=== PATIENT | male | born 1990 | race Caucasian/White ===

== ENCOUNTER 2021-11-11 17:09 | Emergency (ER) | payer OTHER ==
[~2021-11-11] VITALS: Ht 165.1 cm; Wt 58.5 kg
[~2021-11-11 17:09] MED LIST: HUMSLIDE SUBQ; IMO2 PO; INSU100I7 SQ
--- NOTE | 2021-11-11 17:15 | NUR ---
AMBULATED TO ER BED 8
[2021-11-11 17:19] VITALS: BP 136/90
[2021-11-11] MEDS ORDERED: NACL 0.9% 2,000 ML IV ONE (17:25)
--- NOTE | 2021-11-11 17:30 | NUR ---
RT BEDSIDE FOR ABG
--- NOTE | 2021-11-11 17:40 | NUR ---
LAB BEDSIDE FOR BLOOD DRAW
--- NOTE | 2021-11-11 17:42 | NUR ---
31/M BIB SELF WITH C/O VOMITING AND ABDOMINAL PAIN SINCE THIS MORNING. STATES HE CHECKED HIS BLOOD SUGAR 20 MINS PRIOR TO ARRIVAL TO ED AND IT WAS IN THE 500S. PATIENTS BLOOD SUGAR 569 UPON ARRIVAL. DENIES DIZZINESS OR VISION CHANGES, PATIENT STATES HE WAS ADMITTED HERE FOR HIGH SUGAR IN THE PAST AND SENT HOME ON RX OF HUMALOG, PATIENT STATES HE HAS BEEN COMPLIANT WITH HOME MEDICATIONS.
[2021-11-11 17:54] LABS: BASOPHILS % (AUTO) 0.6 % (0.0-2.0); EOSINOPHILS # (AUTO) 0.1 K/uL (0-0.4); EOSINOPHILS % (AUTO) 1.6 % (0.0-4.0); HEMATOCRIT 39.1 % (36-52); HEMOGLOBIN 12.7 g/dL (12.0-18.0); LYMPHOCYTES # (AUTO) 1.3 K/uL (2.0-11.5); LYMPHOCYTES % (AUTO) 23.1 % (20.5-51.1); MEAN CORPUSCULAR HEMOGLOBIN 24 pg (27-31); MEAN CORPUSCULAR HGB CONC 32 g/dL (33-37); MEAN CORPUSCULAR VOLUME 74.4 fL (80-94); MONOCYTES # (AUTO) 0.2 K/uL (0.8-1.0); MONOCYTES % (AUTO) 3.5 % (1.7-9.3); NEUTROPHILS # (AUTO) 4.1 K/uL (1.8-7.7); NEUTROPHILS % (AUTO) 71.2 % (42.2-75.2); PLATELET COUNT (AUTO) 270 K/uL (140-450); RED BLOOD CELL COUNT(AUTO) 5.25 MIL/uL (4.20-6.10); RED CELL DISTRIBUTION WIDTH 16.7 % (11.6-13.7); WHITE BLOOD COUNT (AUTO) 5.7 K/uL (4.8-10.8)
--- NOTE | 2021-11-11 18:00 | NUR ---
31/M BIB SELF WITH C/O VOMITING AND ABD PAIN 8/10 SINCE THIS MORNING. 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 PATIENTS BLOOD SUGAR 569 UPON ARRIVAL. DENIES DIZZINESS OR VISION CHANGES. ALLERGIES: PENICILLIN, REGLAN PMH: DM, ASTHMA
--- NOTE | 2021-11-11 18:00 | NUR ---
ARDON AT BEDSIDE.
--- NOTE | 2021-11-11 18:12 | NUR ---
X-RAY AT BEDSIDE.
[2021-11-11 18:23] LABS: ALBUMIN 3.7 g/dL (3.4-5.0); ANION GAP 12.2 (8-16); CARBON DIOXIDE 27.5 mmol/L (21-32); CREATININE 1.7 mg/dL (0.6-1.3); POTASSIUM 4.7 mmol/L (3.5-5.1); TOTAL BILIRUBIN 0.6 mg/dL (0.0-1.0)
[2021-11-11] MEDS ORDERED: KETOROLAC 30 MG/ML VIAL IVP ONE ×2 (18:50→19:50)
[2021-11-11] MEDS ORDERED: ONDANSETRON 4 MG/2 ML VIAL IVP ONE (18:50)
--- NOTE | 2021-11-11 19:18 | NUR ---
GAVE REPORT TO MARIA WU.
--- NOTE | 2021-11-11 20:01 | NUR ---
PT SLEEPING IN A LATERAL POSITION. BED LOWERED TO LOWEST POSITION
--- NOTE | 2021-11-11 21:00 | NUR ---
BLOOD SUGAR COMING DOWN. PT STATES STOMACH PAIN HAS NOT RESOLVED. DR EWING TO SEE PT
[2021-11-11] MEDS ORDERED: MORPHINE SULFATE 4 MG/ML SYR IVP ONE (21:10)
[2021-11-11] MEDS ORDERED: BEN10 PO (21:12)
--- NOTE | 2021-11-11 21:45 | NUR ---
Patient appears to be resting comfortably in bed. Vital Signs within normal limits. Respirations even and unlabored.
--- NOTE | 2021-11-11 22:30 | NUR ---
PROVIDED PT WATER. PT STATES PAIN 08/02. ALL NEEDS MET AT THIS TIME
[2021-11-11 22:45] VITALS: BP 121/80
--- NOTE | 2021-11-11 22:45 | NUR ---
Patient discharged with v/s stable. Written and verbal after care instructions given and explained. Patient alert, oriented and verbalized understanding of instructions. Ambulatory with steady gait. All questions addressed prior to discharge. ID band removed. Patient advised to follow up with PMD. Rx of BENTYL given. Opportunity to ask questions provided and answered.
--- NOTE | 2021-11-11 23:19 | NUR ---
The patient's care was reviewed and supervised by Analilia Curran RN.
== END 2021-11-11 22:45 | disposition home or self-care (01) ==
LOC: MED 17:09
DX: E11.65 Type 2 diabetes mellitus with hyperglycemia (principal); R11.2 Nausea with vomiting, unspecified; J45.909 Unspecified asthma, uncomplicated; Z79.899 Other long term (current) drug therapy; Z79.4 Long term (current) use of insulin; Z88.0 Allergy status to penicillin; Z88.1 Allergy status to other antibiotic agents
CPT/HCPCS: 36415; 36600; 71045; 80053; 82803; 82948; 83605; 83690; 85025; 87040; 96361; 96374; 96375; 99284; J1885; J2270; J2405; J7030

== ENCOUNTER 2021-12-03 18:30 | Emergency (ER) | payer OTHER ==
[~2021-12-03] VITALS: Ht 165.1 cm; Wt 58.5 kg
[~2021-12-03 18:30] MED LIST changes: +BEN10 PO
[2021-12-03 18:54] VITALS: BP 89/50
--- NOTE | 2021-12-03 19:30 | NUR ---
Patient ambulated to bed 1 and change to a gown.
[2021-12-03] MEDS ORDERED: NACL 0.9% 1,000 ML IV ONE (20:10)
[2021-12-03] MEDS ORDERED: ONDANSETRON 4 MG/2 ML VIAL IVP ONE (21:10)
[2021-12-03] MEDS ORDERED: MORPHINE SULFATE 4 MG/ML SYR IVP ONE (21:10)
[2021-12-03 21:24] LABS: ACETONE, SERUM NEGATIVE (NEGATIVE)
[2021-12-03 21:31] LABS: BASOPHILS % (AUTO) 0.7 % (0.0-2.0); EOSINOPHILS # (AUTO) 0.2 K/uL (0-0.4); EOSINOPHILS % (AUTO) 2.9 % (0.0-4.0); HEMOGLOBIN 12.2 g/dL (12.0-18.0); LYMPHOCYTES # (AUTO) 2.2 K/uL (2.0-11.5); MEAN CORPUSCULAR HEMOGLOBIN 24 pg (27-31); MEAN CORPUSCULAR HGB CONC 32 g/dL (33-37); MEAN CORPUSCULAR VOLUME 75.3 fL (80-94); MONOCYTES # (AUTO) 0.3 K/uL (0.8-1.0); MONOCYTES % (AUTO) 4.6 % (1.7-9.3); NEUTROPHILS # (AUTO) 4.4 K/uL (1.8-7.7); NEUTROPHILS % (AUTO) 60.8 % (42.2-75.2); PLATELET COUNT (AUTO) 319 K/uL (140-450); RED BLOOD CELL COUNT(AUTO) 5.05 MIL/uL (4.20-6.10); RED CELL DISTRIBUTION WIDTH 17.2 % (11.6-13.7); WHITE BLOOD COUNT (AUTO) 7.2 K/uL (4.8-10.8)
[2021-12-03 21:34] LABS: ALBUMIN 2.2 g/dL (3.4-5.0); ANION GAP 13.4 (8-16); ASPARTATE AMINOTRANSFERASE 15 U/L (15-37); CARBON DIOXIDE 17.8 mmol/L (21-32); CHLORIDE 117 mmol/L (98-107); CREATININE 1.4 mg/dL (0.6-1.3); GFR ARICAN-AMERICAN 75 mL/min (>90); GLUCOSE 57 mg/dL (74-106); SODIUM SERUM 146 mmol/L (136-145); TOTAL BILIRUBIN 0.2 mg/dL (0.0-1.0); UREA NITROGEN, BLOOD 24 mg/dL (7-18)
[2021-12-03 21:37] LABS: POTASSIUM 2.2 mmol/L (3.5-5.1)
--- NOTE | 2021-12-03 21:52 | NUR ---
PT BIB SELF WITH COMPLAINT OF FEELING WEAK AND ABDOMINAL PAIN SHE RATES 10/10. STATES HIS BS AT HOME WAS ELEVATED IN THE 500. PT STATES HE HAS DM TYPE 1 AND STATES HIS CURRENT MEDICATION DOES NOT HELP WITH HIS BS LEVELS. DENIES ANY OTHER MEDICAL PROBLEMS.
--- NOTE | 2021-12-03 22:32 | NUR ---
PT CURRENTLY IN BED IN NO ACUTE DISTRESS, STATES HE FEELS BETTER AND IS IN VERY LITTLE ABDOMINAL PAIN AFTER PAIN MEDICATION, RATES 5/10.
[2021-12-03 22:42] LABS: BASOPHILS % (AUTO) 0.7 % (0.0-2.0); EOSINOPHILS # (AUTO) 0.2 K/uL (0-0.4); EOSINOPHILS % (AUTO) 3.1 % (0.0-4.0); HEMATOCRIT 38.4 % (36-52); HEMOGLOBIN 12.5 g/dL (12.0-18.0); LYMPHOCYTES # (AUTO) 2.5 K/uL (2.0-11.5); LYMPHOCYTES % (AUTO) 34.6 % (20.5-51.1); MEAN CORPUSCULAR HEMOGLOBIN 24 pg (27-31); MEAN CORPUSCULAR HGB CONC 33 g/dL (33-37); MEAN CORPUSCULAR VOLUME 74.1 fL (80-94); MONOCYTES # (AUTO) 0.3 K/uL (0.8-1.0); MONOCYTES % (AUTO) 4.5 % (1.7-9.3); NEUTROPHILS # (AUTO) 4.1 K/uL (1.8-7.7); NEUTROPHILS % (AUTO) 57.1 % (42.2-75.2); PLATELET COUNT (AUTO) 290 K/uL (140-450); RED BLOOD CELL COUNT(AUTO) 5.18 MIL/uL (4.20-6.10); RED CELL DISTRIBUTION WIDTH 17.7 % (11.6-13.7); WHITE BLOOD COUNT (AUTO) 7.2 K/uL (4.8-10.8)
[2021-12-03 23:07] LABS: ALBUMIN 3.4 g/dL (3.4-5.0); ANION GAP 14.1 (8-16); CARBON DIOXIDE 22.6 mmol/L (21-32); CREATININE 1.8 mg/dL (0.6-1.3); POTASSIUM 3.7 mmol/L (3.5-5.1); TOTAL BILIRUBIN 0.2 mg/dL (0.0-1.0)
[2021-12-03] MEDS ORDERED: ONDA-188 SL (23:30)
[2021-12-03] MEDS ORDERED: BEN10 PO (23:30)
[2021-12-04 00:40] VITALS: BP 89/50
--- NOTE | 2021-12-04 00:40 | NUR ---
Patient discharged with v/s stable. Written and verbal after care instructions given and explained. Patient alert, oriented and verbalized understanding of instructions. Ambulatory with steady gait. All questions addressed prior to discharge. ID band removed. Patient advised to follow up with PMD. Rx of DICICLOMINE AND ONDANSETRON given. Patient educated on indication of medication including possible reaction and side effects. Opportunity to ask questions provided and answered.
== END 2021-12-04 00:40 | disposition home or self-care (01) ==
LOC: MED 18:30
DX: R11.2 Nausea with vomiting, unspecified (principal); E11.65 Type 2 diabetes mellitus with hyperglycemia; J45.909 Unspecified asthma, uncomplicated; Z79.899 Other long term (current) drug therapy; Z79.4 Long term (current) use of insulin; Z88.0 Allergy status to penicillin; Z88.8 Allergy status to other drugs, medicaments and biological substances; Z91.011 Allergy to milk products
CPT/HCPCS: 36415; 80053; 82009; 82803; 85025; 96361; 96374; 96375; 99284; J2270; J2405; J7030

== ENCOUNTER 2022-01-24 03:45 | Emergency (ER) | payer OTHER ==
[~2022-01-24] VITALS: Ht 172.7 cm; Wt 74.8 kg
[~2022-01-24 03:45] MED LIST changes: +ACET-9525 PO; +NITR100C7 PO; +ONDA-188 SL; +PANT40EC PO
[2022-01-24 03:47] VITALS: BP 150/104
--- NOTE | 2022-01-24 03:53 | NUR ---
PT BROUGHT TO BED 8 VIA MANNY EDWARDS
--- NOTE | 2022-01-24 04:25 | NUR ---
31 Y/O M BIBA FOR SEIZURE THAT LASTED 30 SECONDS WITNESSED BY ROOMATE R/T LOW BLOOD SUGAR. PT DENIES HITTING HEAD. PT WAS INCONTINENT . AT THE SCENE BS WAS 20 , EMS GAVE GLUCAGON AT ARRIVAL BS WAS 191. DENIES N/V/D; SKIN IS PINK/WARM/DRY; AAOX4 WITH EVEN AND STEADY GAIT; LUNGS CLEAR BL; HR EVEN AND REGULAR; PT DENIES ANY FEVER, CP, SOB, OR COUGH AT THIS TIME; PATIENT STATES PAIN OF 0/10 AT THIS TIME; PMH: DIABETES RX: INSULIN
[2022-01-24 05:27] LABS: ALBUMIN 3.3 g/dL (3.4-5.0); ANION GAP 11.1 (8-16); CARBON DIOXIDE 25.3 mmol/L (21-32); CREATININE 1.5 mg/dL (0.6-1.3); POTASSIUM 4.4 mmol/L (3.5-5.1); TOTAL BILIRUBIN 0.2 mg/dL (0.0-1.0)
[2022-01-24 05:28] LABS: HEMOGLOBIN 11.1 g/dL (12.0-18.0)
[2022-01-24 05:36] LABS: HEMATOCRIT 34.7 % (36-52); MEAN CORPUSCULAR HEMOGLOBIN 25 pg (27-31); MEAN CORPUSCULAR HGB CONC 32 g/dL (33-37); MEAN CORPUSCULAR VOLUME 77.2 fL (80-94); PLATELET COUNT (AUTO) 335 K/uL (140-450); RED CELL DISTRIBUTION WIDTH 16.5 % (11.6-13.7); WHITE BLOOD COUNT (AUTO) 20.7 K/uL (4.8-10.8)
[2022-01-24 05:40] LABS: EOSINOPHILS % (MANUAL) 1 % (0-4); LYMPHOCYTES % (MANUAL) 5 % (20-46); MONOCYTES % (MANUAL) 6 % (5-12)
--- NOTE | 2022-01-24 05:55 | NUR ---
Patient appears to be resting comfortably in bed. Vital Signs within normal limits. Respirations even and unlabored.
[2022-01-24 06:40] VITALS: BP 106/68
--- NOTE | 2022-01-24 06:40 | NUR ---
Patient discharged with v/s stable. Written and verbal after care instructions given and explained. Patient verbalized understanding. Ambulatory with steady gait. All questions addressed prior to discharge. Advised to follow up with PMD.
== END 2022-01-24 06:40 | disposition home or self-care (01) ==
LOC: MED 03:45
DX: E10.649 Type 1 diabetes mellitus with hypoglycemia without coma (principal); R41.82 Altered mental status, unspecified; J45.909 Unspecified asthma, uncomplicated; Z88.0 Allergy status to penicillin; Z79.84 Long term (current) use of oral hypoglycemic drugs; Z79.4 Long term (current) use of insulin; Z91.011 Allergy to milk products
CPT/HCPCS: 36415; 80053; 85025; 99285

== ENCOUNTER 2022-02-09 16:53 | Emergency (ER) | payer OTHER ==
[~2022-02-09] VITALS: Ht 165.1 cm; Wt 57.6 kg
[2022-02-09 17:46] VITALS: BP 109/73
[2022-02-09] MEDS ORDERED: NACL 0.9% 1,000 ML IV ONE ×2 (18:55→19:40)
[2022-02-09 19:14] LABS: WHITE BLOOD COUNT (AUTO) 4.5 K/uL (4.8-10.8)
[2022-02-09 19:15] LABS: EOSINOPHILS % (AUTO) 6.4 % (0.0-4.0); HEMATOCRIT 40.8 % (36-52); HEMOGLOBIN 13.1 g/dL (12.0-18.0); LYMPHOCYTES % (AUTO) 22.1 % (20.5-51.1); MEAN CORPUSCULAR HEMOGLOBIN 25 pg (27-31); MEAN CORPUSCULAR HGB CONC 32 g/dL (33-37); MEAN CORPUSCULAR VOLUME 76.7 fL (80-94); MONOCYTES % (AUTO) 9.2 % (1.7-9.3); PLATELET COUNT (AUTO) 272 K/uL (140-450); RED BLOOD CELL COUNT(AUTO) 5.32 MIL/uL (4.20-6.10)
[2022-02-09 19:16] LABS: BASOPHILS # (AUTO) 0.1 K/uL (0.00-0.22); BASOPHILS % (AUTO) 1.3 % (0.0-2.0); EOSINOPHILS # (AUTO) 0.3 K/uL (0-0.4); MONOCYTES # (AUTO) 0.4 K/uL (0.8-1.0); NEUTROPHILS # (AUTO) 2.8 K/uL (1.8-7.7)
[2022-02-09 19:36] LABS: ANION GAP 19.8 (8-16); CARBON DIOXIDE 21.1 mmol/L (21-32); CHLORIDE 89 mmol/L (98-107); POTASSIUM 5.9 mmol/L (3.5-5.1); SODIUM SERUM 124 mmol/L (136-145)
[2022-02-09 19:38] LABS: CREATININE 1.7 mg/dL (0.6-1.3); GFR ARICAN-AMERICAN 60 mL/min (>90); GLUCOSE 682 mg/dL (74-106); TOTAL BILIRUBIN 0.7 mg/dL (0.0-1.0); UREA NITROGEN, BLOOD 28 mg/dL (7-18)
[2022-02-09 19:39] LABS: ALBUMIN 4.2 g/dL (3.4-5.0); ASPARTATE AMINOTRANSFERASE 31 U/L (15-37)
[2022-02-09] MEDS ORDERED: INSULIN REGULAR, HUMAN 100 UNIT/ML VIAL IV ONE (19:40)
[2022-02-09] MEDS ORDERED: DICYCLOMINE HCL LIQUID 20 MG, ALUMINUM HYD/MAG/SIMETHICONE 30 ML, LIDOCAINE VISCOUS 2% ... PO ONE ×3 (20:45)
[2022-02-09] MEDS ORDERED: INSULIN REGULAR, HUMAN 100 UNIT/ML VIAL SUBQ ONE (20:45)
[2022-02-09] MEDS ORDERED: ONDANSETRON 4 MG/2 ML VIAL IVP ONE (20:45)
[2022-02-09] MEDS ORDERED: ONDANSETRON 4 MG/2 ML VIAL ONE (21:02)
[2022-02-09] MEDS ORDERED: DICYCLOMINE HCL LIQUID 10 MG/5 ML UDC ONE (21:02)
[2022-02-09] MEDS ORDERED: ALUMINUM HYD/MAG/SIMETHICONE 30 ML UDC ONE (21:02)
[2022-02-09 21:17] VITALS: BP 112/79
[2022-02-09] MEDS ORDERED: KETOROLAC 15 MG/ML VIAL IVP ONE (21:20)
[2022-02-09] MEDS ORDERED: KETOROLAC 15 MG/ML VIAL ONE (21:26)
[2022-02-09] MEDS ORDERED: FAMO-90 PO (21:59)
[2022-02-09] MEDS ORDERED: ONDA-188 PO (21:59)
[2022-02-10] MEDS ORDERED: ALBU0.0912 INH (16:31)
== END 2022-02-09 22:48 | disposition home or self-care (01) ==
LOC: MED 16:53
DX: U07.1 COVID-19 (principal); E10.65 Type 1 diabetes mellitus with hyperglycemia; E87.5 Hyperkalemia; J45.909 Unspecified asthma, uncomplicated; F17.210 Nicotine dependence, cigarettes, uncomplicated; Z88.0 Allergy status to penicillin; Z79.84 Long term (current) use of oral hypoglycemic drugs; Z91.011 Allergy to milk products; Z79.4 Long term (current) use of insulin; Z79.899 Other long term (current) drug therapy
CPT/HCPCS: 36415; 71045; 80053; 82803; 84132; 84484; 85025; 87426; 96361; 96372; 96374; 96375; 99291; J1815; J1885; J2405; J7030; Q0092

== ENCOUNTER 2022-02-10 13:34 | Inpatient (IN) | payer OTHER ==
[~2022-02-10] VITALS: Ht 165.1 cm; Wt 60.0 kg
[~2022-02-10 13:34] MED LIST changes: +FAMO-90 PO; +ONDA-188 PO
[2022-02-10 13:39] VITALS: BP 139/95
--- NOTE | 2022-02-10 13:44 | NUR ---
Patient ambulated with steady gait to bed 1.
[2022-02-10] MEDS ORDERED: NACL 0.9% 1,000 ML IV ONE (14:30)
[2022-02-10] MEDS ORDERED: ONDANSETRON 4 MG/2 ML VIAL IVP ONE (14:30)
[2022-02-10 15:23] LABS: BASOPHILS # (AUTO) 0.1 K/uL (0.00-0.22); BASOPHILS % (AUTO) 0.7 % (0.0-2.0); EOSINOPHILS # (AUTO) 0.2 K/uL (0-0.4); EOSINOPHILS % (AUTO) 2.7 % (0.0-4.0); HEMATOCRIT 34.2 % (36-52); HEMOGLOBIN 11.2 g/dL (12.0-18.0); LYMPHOCYTES # (AUTO) 1.1 K/uL (2.0-11.5); LYMPHOCYTES % (AUTO) 14.4 % (20.5-51.1); MEAN CORPUSCULAR HEMOGLOBIN 25 pg (27-31); MEAN CORPUSCULAR HGB CONC 33 g/dL (33-37); MEAN CORPUSCULAR VOLUME 75.6 fL (80-94); MONOCYTES # (AUTO) 0.3 K/uL (0.8-1.0); MONOCYTES % (AUTO) 4.6 % (1.7-9.3); NEUTROPHILS # (AUTO) 5.8 K/uL (1.8-7.7); NEUTROPHILS % (AUTO) 77.6 % (42.2-75.2); PLATELET COUNT (AUTO) 254 K/uL (140-450); RED BLOOD CELL COUNT(AUTO) 4.52 MIL/uL (4.20-6.10); RED CELL DISTRIBUTION WIDTH 15.9 % (11.6-13.7); WHITE BLOOD COUNT (AUTO) 7.4 K/uL (4.8-10.8)
[2022-02-10] MEDS ORDERED: MORPHINE SULFATE 4 MG/ML SYR IVP ONE (15:30)
[2022-02-10 15:33] LABS: ACETONE, SERUM SMALL (NEGATIVE)
--- NOTE | 2022-02-10 15:35 | NUR ---
PT C/O OF VOMITING X 1DAY, COVID+. PT COMPLAIN OF SOME CHEST DISCOMFORT AND SOB. 10/10 PAIN IN BLQ. PT WOULD NOT LET ME PALPATE AREA DUE TO PAIN. IN TRIAGE PTS BS 448. DENIES DIAHRREA, FEVER OR CHILLS. A&OX4, SKIN INTACT, VITALS WNL FOR PT, AND STEADY GAIT. PT PLACED ON BEDSIDE MONITOR. ALLERGIES: PENICILLIN, REGLAN PMH: DM, ASTHMA
[2022-02-10 15:39] LABS: ALBUMIN 3.6 g/dL (3.4-5.0); ANION GAP 24.4 (8-16); ASPARTATE AMINOTRANSFERASE 22 U/L (15-37); CARBON DIOXIDE 18.1 mmol/L (21-32); CHLORIDE 98 mmol/L (98-107); CREATININE 1.4 mg/dL (0.6-1.3); GFR ARICAN-AMERICAN 75 mL/min (>90); LIPASE 43 U/L (73-393); POTASSIUM 4.5 mmol/L (3.5-5.1); SODIUM SERUM 136 mmol/L (136-145); TOTAL BILIRUBIN 0.5 mg/dL (0.0-1.0); UREA NITROGEN, BLOOD 25 mg/dL (7-18)
[2022-02-10 15:41] LABS: GLUCOSE 411 mg/dL (74-106)
--- NOTE | 2022-02-10 15:58 | NUR ---
QUINTON GIVEN TO SHIP WASHER
[2022-02-10] MEDS ORDERED: ALBU0.0912 INH (16:31)
[2022-02-10] MEDS ORDERED: ONDANSETRON 4 MG/2 ML VIAL IVP PRN (16:45)
[2022-02-10] MEDS ORDERED: DEXTROSE 50% 50 ML SYR IVP PRN (16:45)
[2022-02-10] MEDS ORDERED: ACETAMINOPHEN 325 MG TAB PO PRN (16:45)
[2022-02-10] MEDS ORDERED: INSULIN LANTUS 100 UNITS/ML 10 ML VIAL SUBQ SCH (17:00)
[2022-02-10 17:01] LABS: APPEARANCE,URINE CLEAR (CLEAR); BILIRUBIN,URINE NEGATIVE (NEGATIVE); BLOOD, URINE TRACE-I (NEGATIVE); COLOR,URINE YELLOW (YELLOW); LEUKOCYTE ESTERASE ,URINE NEGATIVE (NEGATIVE); NITRITE, URINE NEGATIVE (NEGATIVE); UGLUCOSE 3+ (NEGATIVE)
--- NOTE | 2022-02-10 17:15 | NUR ---
PT VOMITED. GAVE DUE MEDS. NOTIFIED PT THAT HE HAD TYLENOL IF HE WOULD LIKE THAT WHILE I CALLED THE DOCTOR. ALL PTS NEEDS MEET AT THIS TIME.
[2022-02-10 17:18] LABS: OTHER CASTS, URINE None Seen /LPF (None Seen); RBC,URINE 0-5 /HPF (0-5); WBC,URINE 0-5 /HPF (0-5)
[2022-02-10] MEDS: NACL 0.9% 1,000 ML IV SCH (17:19)
[2022-02-10 18:00] LABS: ANION GAP 21.2 (8-16); CARBON DIOXIDE 19.2 mmol/L (21-32); CREATININE 1.3 mg/dL (0.6-1.3); POTASSIUM 4.4 mmol/L (3.5-5.1)
--- NOTE | 2022-02-10 18:25 | NUR ---
PT ARRIVED TO UNIT VIA GURNEY. PT IS AWAKE AND ALERT. A&OX4. ON RA WITH BREATHING UNLABORED. AMBULATORY INDEPENDENTLY. SKIN IS WARM, DRY, AND INTACT. NO DISTRESS NOTED AT THIS TIME. PT IS STABLE. PLAN OF CARE DISCUSSED.
[2022-02-10 18:30] VITALS: BP 126/94
--- NOTE | 2022-02-10 18:30 | NUR ---
Patient will be admitted to care of DR. BA. Admited to MED SURG. Will go to [facility] 118. Belongings list completed. Report to COLLETTE STEINBERG.
--- NOTE | 2022-02-10 19:12 | NUR ---
ENDORSE TO FEED PREPARATION OPERATOR FOR CONTINUE NEW ADMIT ASSESSMENT.
--- NOTE | 2022-02-10 19:38 | NUR ---
ENDORSED PT TO DIAMOND FINISHING SUPERVISOR NURSE FOR CONTINUITY OF CARE. PT IS STABLE. PLAN OF CARE DISCUSSED.
--- NOTE | 2022-02-10 19:40 | NUR ---
RECEIVED REPORT FROM DAY SHIFT RN FOR CONTINUITY OF CARE. PT IS ON DROPLET PRECAUTIONS. PT IS AAOX4 ON RA. PT COMPLAINING OF PAIN AND ONLY HAS TYLENOL ORDER. WILL MESSAGE PERMASTONE INSTALLER DOCTOR. PT HAS RIGHT AC 22 GAUGE WITH NS 125 ML/HR. PLAN OF CARE DISCUSSED. CALL LIGHT WITHIN REACH. WILL CONTINUE TO OBSERVE THE PT.
[2022-02-10 20:00] VITALS: BP 138/94
[2022-02-10] MEDS: HYDROcodone/APAP 5/325 MG 1 TAB TAB PO PRN (20:44)
--- NOTE | 2022-02-10 20:50 | NUR ---
ALL DUE MEDS GIVEN. NORCO GIVEN PER MD ORDER FOR ABD PAIN. NO OTHER COMPLAINS FROM THE PT. WILL CONTINUE TO OBSERVE.
[2022-02-10] MEDS ORDERED: FAMOTIDINE 20 MG/2 ML VIAL IVP SCH (21:00)
[2022-02-10] MEDS: INSULIN LISPRO SLIDING SCALE 100 UNITS/ML VIAL SUBQ PRN (21:07)
[2022-02-10] MEDS: BLOOD GLUCOSE MONITORING 1 DEV DEV FS SCH (21:08)
[2022-02-10] MEDS: INSULIN LANTUS 100 UNITS/ML 10 ML VIAL SUBQ SCH (21:08)
--- NOTE | 2022-02-10 21:48 | NUR ---
PT IV GOT INFILTRATED. IV WAS REMOVED AND CATHETER INTACT. PT IS HARD STICK AND HAD TO HAVE US GUIDED IV INSERTION. I WAS UNABLE TO FIND ANY VEINS TO ATTEMPT INSERTION. MESSAGED TREE CHIPPER DOCTOR DIANDRA IF HE WANTS TO ORDER A MIDLINE FOR PT. WAITING FOR REPLY.
--- NOTE | 2022-02-11 00:30 | NUR ---
PT IS SLEEPING COMFORTABLY IN BED. PT IS NOT IN ANY DISTRESS. PT STILL HAS NO IV ACCESS. DR. JIM ORDER FOR A MIDLINE EARLIER. WILL CONTINUE TO OBSERVE THE PT.
[2022-02-11] MEDS: NACL 0.9% 1,000 ML IV SCH ×4 (00:45→20:53)
[2022-02-11 01:03] LABS: ANION GAP 17.5 (8-16); CARBON DIOXIDE 23.7 mmol/L (21-32); CREATININE 1.1 mg/dL (0.6-1.3); POTASSIUM 4.2 mmol/L (3.5-5.1)
--- NOTE | 2022-02-11 02:17 | NUR ---
PT IS AWAKE. PT STATES HE IS DOING WELL. PT HAS NO COMPLAINS RIGHT NOW. WILL CONTINUE TO MONITOR THE PT.
[2022-02-11 04:00] VITALS: BP 129/78
--- NOTE | 2022-02-11 05:05 | NUR ---
PT IS SLEEPING IN BED COMFORTABLY. PT IS NOT IN ANY ACUTE DISTRESS. CALL LIGHT WITHIN REACH. ALL SAFETY MEASURES TAKEN. WILL CONTINUE TO MONITOR THE PT.
[2022-02-11] MEDS: BLOOD GLUCOSE MONITORING 1 DEV DEV FS SCH ×4 (06:42→20:49)
[2022-02-11 07:12] LABS: BASOPHILS % (AUTO) 0.6 % (0.0-2.0); EOSINOPHILS # (AUTO) 0.4 K/uL (0-0.4); EOSINOPHILS % (AUTO) 4.3 % (0.0-4.0); HEMOGLOBIN 11.9 g/dL (12.0-18.0); LYMPHOCYTES # (AUTO) 1.9 K/uL (2.0-11.5); LYMPHOCYTES % (AUTO) 21.8 % (20.5-51.1); MEAN CORPUSCULAR HEMOGLOBIN 25 pg (27-31); MEAN CORPUSCULAR HGB CONC 32 g/dL (33-37); MEAN CORPUSCULAR VOLUME 76.2 fL (80-94); MONOCYTES # (AUTO) 0.7 K/uL (0.8-1.0); MONOCYTES % (AUTO) 8.1 % (1.7-9.3); NEUTROPHILS # (AUTO) 5.6 K/uL (1.8-7.7); NEUTROPHILS % (AUTO) 65.2 % (42.2-75.2); PLATELET COUNT (AUTO) 270 K/uL (140-450); RED BLOOD CELL COUNT(AUTO) 4.85 MIL/uL (4.20-6.10); RED CELL DISTRIBUTION WIDTH 16.3 % (11.6-13.7); WHITE BLOOD COUNT (AUTO) 8.6 K/uL (4.8-10.8)
[2022-02-11 07:22] LABS: ALBUMIN 3.5 g/dL (3.4-5.0); ANION GAP 17.9 (8-16); CARBON DIOXIDE 23.5 mmol/L (21-32); CREATININE 1.1 mg/dL (0.6-1.3); MAGNESIUM 2.1 mg/dL (1.8-2.4); POTASSIUM 3.4 mmol/L (3.5-5.1); TOTAL BILIRUBIN 0.3 mg/dL (0.0-1.0)
--- NOTE | 2022-02-11 07:30 | NUR ---
RECEIVED REPORT FROM PHOTOVOLTAIC INSTALLATION TECHNICIAN NURSE FOR CONTINUITY OF CARE. PT IS AWAKE IN BED. RESPIRATIONS EVEN AND UNLABORED ON RA. A&O4, ABLE TO COMMUNICATE NEEDS. NO IV SITE AT THIS TIME, PER PHOTOVOLTAIC INSTALLATION TECHNICIAN NURSE PICC LINE WAS ORDERED, CONSENT WAS PRINTED BUT NOT YET SIGNED BY PT OR MD. THEREFORE, NO IV FLUIDS AT THIS TIME. PHOTOVOLTAIC INSTALLATION TECHNICIAN NURSE ENDORSED PT HAVING A BS AT 50'S THIS MORNING. HE GAVE PT ORANGE JUICE AND NOW AT 65. UNAWARE IF MD WAS INFORMED BUT NO COVERAGE WAS ORDERED AT THIS TIME. SKIN IS INTACT, WARM AND DRY TO TOUCH. CALL LIGHT WITHIN REACH. SAFETY PRECAUTIONS IN PLACE. WILL CONTINUE TO MONITOR.
--- NOTE | 2022-02-11 07:34 | NUR ---
RECEIVED CRITICAL LAB VALUE FOR GLUCOSE 20. ORANGE JUICE GIVEN. CHECKED FINGERSTICK BS 115. MADE AWARE GLUCAGON ORDERED AND ADMINISTERED.
--- NOTE | 2022-02-11 07:34 | NUR ---
ENDORSE PT TO DAY SHIFT RN FOR CONTINUITY OF CARE. PT IS STABLE.
--- NOTE | 2022-02-11 07:54 | NUR ---
POINT OF CARE DISCUSSED AND REVIEWED WITH JAZMIN SANTANA.
[2022-02-11] MEDS ORDERED: GLUCAGON 1 MG VIAL IM SCH (07:59)
[2022-02-11 08:00] VITALS: BP 140/107
[2022-02-11] MEDS: ENOXAPARIN 40 MG/0.4 ML SYR SUBQ SCH (08:08)
[2022-02-11] MEDS: HYDROcodone/APAP 5/325 MG 1 TAB TAB PO PRN ×2 (08:09→20:30)
--- NOTE | 2022-02-11 08:09 | NUR ---
ADMINISTERED SCHEDULED MORNING MED. PT COMPLAIN OF ABD AND CHEST PAIN WITH NO SOB 12/31, MADE AWARE AND PRN NORCO GIVEN ORDERED. K 3.4, KDUR ORDERED BY . ORDERED TO CHANGE PEPCID TO PO MED. AWAITING FOR PT PICC LINE TO BE INSERTED.
[2022-02-11] MEDS ORDERED: POTASSIUM CHLORIDE 10 MEQ TABER PO SCH (08:24)
--- NOTE | 2022-02-11 08:33 | NUR ---
PATIENT HAS BEEN SCREENED AND CATEGORIZED HIGH NUTRITION RISK. PATIENT WILL BE SEEN WITHIN 1-2 DAYS OF ADMISSION. / ALEX HYDE RD
--- NOTE | 2022-02-11 09:15 | NUR ---
DISCUSSED WITH PT ABOUT PICC LINE INSERTION. PT VERBALIZED UNDERSTANDING. GOT PT CONSENT FOR PICC LINE. GOT TELEPHONE CONSENT FROM DR BA FOR INSERTION OF PICC LINE.
[2022-02-11] MEDS: FAMOTIDINE 20 MG TAB PO SCH ×2 (10:44→20:41)
--- NOTE | 2022-02-11 11:49 | NUR ---
SPOKE TO PICC LINE NURSE. PER PICC LINE NURSE, PICC LINE GOOD TO USE.
--- NOTE | 2022-02-11 12:00 | NUR ---
BLOOD GLUCOSE CHECK DONE. BS 140. NO INSULIN COVERAGE NEEDED. PT HOOKED TO NS 125 ML/HR. PT COMPLAINED OF ABD AND CHEST PAIN 05/02. PT REQUESTING FOR STRONGER PAIN MEDS. PAGED . AWAITING FOR RESPONSE.
[2022-02-11 12:11] LABS: CARBON DIOXIDE 25.1 mmol/L (21-32); CREATININE 1.2 mg/dL (0.6-1.3); POTASSIUM 4.1 mmol/L (3.5-5.1)
--- NOTE | 2022-02-11 14:04 | NUR ---
DID ROUNDS: PT SLEEPING AT THIS TIME. NO DISTRESS NOTED. BREATHING EVEN AND UNLABORED. CALL LIGHT WITHIN REACH. SAFETY PRECAUTIONS IN PLACE.
--- NOTE | 2022-02-11 14:25 | NUR ---
DC PLANNIN YRS OLD MALE PATIENT WAS ADMITTED FROM HOME WITH A DX OF UNCONTROLLED DM, NAUSEA/VOMITING. PATIENT HAS A HX OF DM ON INSULIN. RAPID COVID TEST POSITIVE. CXR SHOWED NO ACUTE DISEASE. ON ROOM AIR SATING 99% ADMINISTERED IVF, IV ZOFRAN AND IV MORPHINE. CONSULTED WITH ID . DC PLAN TO GO HOME WHEN STABLE. CM TO FOLLOW
[2022-02-11] MEDS: MORPHINE SULFATE 4 MG/ML SYR IVP PRN ×2 (14:45→20:40)
--- NOTE | 2022-02-11 14:51 | NUR ---
PAIN MEDICATION GIVEN FOR PAIN ON RIGHT SIDE BODY9/10.
[2022-02-11 16:00] VITALS: BP 121/83
--- NOTE | 2022-02-11 16:56 | NUR ---
BLOOD GLUCOSE CHECK DONE. BS 108. NO INSULIN COVERAGE GIVEN.
--- NOTE | 2022-02-11 19:20 | NUR ---
ENDORSED PT TO MACHINE FITTER NURSE FOR CONTINUITY OF CARE. ALL NEEDS MET THROUGHOUT SHIFT. PT IS STABLE.
[2022-02-11 20:00] VITALS: BP 113/66
--- NOTE | 2022-02-11 20:00 | NUR ---
PAIN PT REPORT PAIN 01/30. PT GIVEN NORCO
--- NOTE | 2022-02-11 20:00 | NUR ---
OPENING NOTE PT IS COVID (=) AND IS ON DROPLET PRECAUTIONS. PT IS AAOX4 ON RA SKIN INTACT. PT COMPLAINING OF PAIN AND RATES PAIN 10/10. PT HAS RIGHT AC 22 GAUGE WITH NS 125 ML/HR. EXPLAINED TO PT HOW TO TAKE IV POLE WITH HIM TO THE RESTROOM. CALL LIGHT WITHIN REACH. ALL SAFETY MEASURES ARE IN PLACE WILL CONTINUE TO OBSERVE THE PT.
--- NOTE | 2022-02-11 20:00 | NUR ---
OPENING NOTE PT IS COVID (+) AND IS ON DROPLET PRECAUTIONS. PT IS AAOX4 ON RA SKIN INTACT. PT COMPLAINING OF PAIN AND RATES PAIN 10/10. PT HAS RIGHT AC 22 GAUGE WITH NS 125 ML/HR. EXPLAINED TO PT HOW TO TAKE IV POLE WITH HIM TO THE RESTROOM. CALL LIGHT WITHIN REACH. ALL SAFETY MEASURES ARE IN PLACE WILL CONTINUE TO OBSERVE THE PT.
--- NOTE | 2022-02-11 20:30 | NUR ---
PAIN PT C/O OF PAIN NA ABD AND RATES 10/. P T GIVEN MORPHINE
--- NOTE | 2022-02-11 20:30 | NUR ---
PAIN MEDICATION PT REPORTED PAIN WAS NOT EFFECTIVE PAIN IS NOW AT 10
[2022-02-11] MEDS: INSULIN LISPRO SLIDING SCALE 100 UNITS/ML VIAL SUBQ PRN (20:53)
[2022-02-11] MEDS: INSULIN LANTUS 100 UNITS/ML 10 ML VIAL SUBQ SCH (20:53)
[2022-02-12] VITALS: BP 123/82
[2022-02-12] MEDS: MORPHINE SULFATE 4 MG/ML SYR IVP PRN ×2 (02:29→09:02)
--- NOTE | 2022-02-12 02:30 | NUR ---
PAIN PT REPORTS PAIN LEVEL IN ABD A 10/10. PT GIVEN MS IVP
[2022-02-12 04:00] VITALS: BP 119/87
--- NOTE | 2022-02-12 05:30 | NUR ---
BLOOD SUGAR PT REQUESTED APPLE JUICEWIT 1 PACKET OF SUGAR
--- NOTE | 2022-02-12 05:30 | NUR ---
BLOOD SUGAR PT REPORTED NT FELING WELL AND BLOOD SUGAR WAS 68
--- NOTE | 2022-02-12 06:00 | NUR ---
BLOOD SUGAR RETAKEN BLOOD SUGAR WAS 101
[2022-02-12] MEDS: BLOOD GLUCOSE MONITORING 1 DEV DEV FS SCH ×3 (06:30→07:06)
[2022-02-12 07:05] LABS: BASOPHILS % (AUTO) 0.6 % (0.0-2.0); EOSINOPHILS # (AUTO) 0.3 K/uL (0-0.4); EOSINOPHILS % (AUTO) 4.8 % (0.0-4.0); HEMATOCRIT 30.4 % (36-52); LYMPHOCYTES # (AUTO) 1.8 K/uL (2.0-11.5); LYMPHOCYTES % (AUTO) 30.1 % (20.5-51.1); MEAN CORPUSCULAR HEMOGLOBIN 25 pg (27-31); MEAN CORPUSCULAR HGB CONC 33 g/dL (33-37); MEAN CORPUSCULAR VOLUME 75.3 fL (80-94); MONOCYTES # (AUTO) 0.4 K/uL (0.8-1.0); MONOCYTES % (AUTO) 7.1 % (1.7-9.3); NEUTROPHILS # (AUTO) 3.5 K/uL (1.8-7.7); NEUTROPHILS % (AUTO) 57.4 % (42.2-75.2); PLATELET COUNT (AUTO) 200 K/uL (140-450); RED BLOOD CELL COUNT(AUTO) 4.03 MIL/uL (4.20-6.10); RED CELL DISTRIBUTION WIDTH 15.8 % (11.6-13.7); WHITE BLOOD COUNT (AUTO) 6.1 K/uL (4.8-10.8)
[2022-02-12 07:16] LABS: ALBUMIN 2.7 g/dL (3.4-5.0); ANION GAP 11.3 (8-16); CARBON DIOXIDE 26.2 mmol/L (21-32); CREATININE 0.7 mg/dL (0.6-1.3); MAGNESIUM 1.8 mg/dL (1.8-2.4); POTASSIUM 3.5 mmol/L (3.5-5.1); TOTAL BILIRUBIN 0.2 mg/dL (0.0-1.0)
[2022-02-12 08:00] VITALS: BP 124/86
--- NOTE | 2022-02-12 08:02 | NUR ---
RECEIVED REPORT FROM PRIMARY CARE PROVIDER NURSE FOR CONTINUITY OF CARE, POC DISCUSSED. PT IS STABLE IN BED. ALL SAFETY MEASURES IN PLACE, CALL LIGHT WITHIN REACH. WILL CONTINUE TO MONITOR.
[2022-02-12] MEDS: FAMOTIDINE 20 MG TAB PO SCH (08:57)
[2022-02-12] MEDS: ENOXAPARIN 40 MG/0.4 ML SYR SUBQ SCH (08:58)
--- NOTE | 2022-02-12 09:00 | NUR ---
[place] MEDICATION ADMINISTERED PER MD ORDER, PT TOLERATED ADMINISTRATION. PRN PAIN MEDICATION ADMINISTERED PER MD ORDER. PT TOLERATED ADMINISTRATION. ALL SAFETY MEASURES IN PLACE, CALL LIGHT WITHIN REACH. WILL CONTINUE TO MONITOR.
[2022-02-12] MEDS: NACL 0.9% 1,000 ML IV SCH (09:02)
--- NOTE | 2022-02-12 10:48 | NUR ---
(02/12/22) RD INITIAL ASSESSMENT COMPLETED PLEASE REFER TO NUTRITION ASSESSMENT UNDER CARE ACTIVITY FOR ESTIMATED NUTRITIONAL NEEDS. RD RECOMMENDATIONS: 1. CONTINUE ON CCHO 60 GM DIET TOLERATED. 2. CONSULT RDN PRN. 3. RD WILL F/U 3-5 DAYS; MODERATE RISK. JEANIE GOODSON MS, RDN
--- NOTE | 2022-02-12 12:00 | NUR ---
BLOOD GLUCOSE OF 256, 6 UNITS OF INSULIN ADMINISTERED PER MD ORDER, PT TOLERATED ADMINISTRATION.
[2022-02-12] MEDS: INSULIN LISPRO SLIDING SCALE 100 UNITS/ML VIAL SUBQ PRN (12:20)
[2022-02-12] MEDS: HYDROcodone/APAP 5/325 MG 1 TAB TAB PO PRN (12:48)
--- NOTE | 2022-02-12 13:00 | NUR ---
PRN PAIN MEDICATION ADMINISTERED PER MD ORDER, PT TOLERATED ADMINISTRATION.
--- NOTE | 2022-02-12 15:12 | NUR ---
DC INSTRUCTIONS PROVIDED TO PT, PT VERBALIZED UNDERSTANDING. ALL QUESTIONS HAVE BEEN ANSWERED. DC PAPERWORK SIGNED AND HANDED TO PT. PICC LINE REMOVED, CATH IN PLACE. PT TOLERATED REMOVAL. PT IS STABLE.
[2022-02-12] MEDS ORDERED: BLOOD GLUCOSE MONITORING 1 DEV DEV FS SCH (16:30)
== END 2022-02-12 15:20 | disposition home or self-care (01) | DRG 137 ==
LOC: MED 13:34 → MTU 16:57
PROVIDERS: ADMIT Internal Medicine; ATTEND Internal Medicine
PROC: 02HV33Z Insertion of Infusion Device into Superior Vena Cava, Percutaneous Approach (ICD-10-PCS; principal; 2022-02-11)
PROC: B548ZZA Ultrasonography of Superior Vena Cava, Guidance (ICD-10-PCS; 2022-02-11)
DX: U07.1 COVID-19 (principal); N17.0 Acute kidney failure with tubular necrosis; E86.0 Dehydration; E10.65 Type 1 diabetes mellitus with hyperglycemia; J45.909 Unspecified asthma, uncomplicated; Z88.0 Allergy status to penicillin; Z88.8 Allergy status to other drugs, medicaments and biological substances; Z79.899 Other long term (current) drug therapy; Z79.4 Long term (current) use of insulin
CPT/HCPCS: 36415; 36556; 36600; 71045; 80048; 80053; 81001; 82009; 82803; 82948; 83690; 83735; 85025; 85379; 86140; 87081; 96361; 96372; 96374; 96375; 99285; J1610; J1650; J1815; J2270; J2405; J3490; J7030; Q0092

== ENCOUNTER 2022-02-24 08:05 | Inpatient (IN) | payer OTHER ==
[~2022-02-24] VITALS: Ht 165.1 cm; Wt 56.7 kg
--- NOTE | 2022-02-24 06:07 | NUR ---
Reported critical phaneuf hospital lab to Dr. Carver. New order received. Addendum: 02/24/22 at 1716 by Radha Donald RN Correct time 2061
[~2022-02-24 08:05] MED LIST changes: -ACET-9525 PO; +ALBU0.0912 INH; -BEN10 PO; -IMO2 PO; -NITR100C7 PO; -ONDA-188 SL
[2022-02-24 08:10] VITALS: BP 104/76
--- NOTE | 2022-02-24 08:16 | NUR ---
PT AMB TO BED 2.
[2022-02-24] MEDS ORDERED: HALOPERIDOL IM 5 MG/ML VIAL IM ONE (08:20)
[2022-02-24] MEDS ORDERED: MORPHINE SULFATE 4 MG/ML SYR IM ONE (08:20)
--- NOTE | 2022-02-24 08:43 | NUR ---
31 Y.O. M C/O GENERALIZED ABDOMINAL PAIN, N/V/D X 3 DAYS. BLOOD SUGAR: HI AT THIS TIME. PT SAID TOOK LAST DOSE OF INSULIN LAST NIGHT. 300CC OF EMISIS IN BAG WHEN AMBULATED TO BED. DENIES SOB AND CHEST PAIN. A&OX4, SKIN INTACT, VITALS WNL AND STEADY GAIT. PT PLACED IN GOWN AND SWAPPED EMISIS BAG FOR NEW ONE. ALLERGY:PENICILLIN, LACTOSE, METOCLOPRAMIDE PMH: ASTHMA, DM
[2022-02-24 09:21] LABS: ALBUMIN 4.1 g/dL (3.4-5.0); ASPARTATE AMINOTRANSFERASE 11 U/L (15-37); CARBON DIOXIDE 22.4 mmol/L (21-32); CHLORIDE 87 mmol/L (98-107); GFR ARICAN-AMERICAN 17 mL/min (>90); LIPASE 56 U/L (73-393); POTASSIUM 4.4 mmol/L (3.5-5.1); SODIUM SERUM 134 mmol/L (136-145); TOTAL BILIRUBIN 0.7 mg/dL (0.0-1.0)
[2022-02-24 09:48] LABS: GLUCOSE 716 mg/dL (74-106); UREA NITROGEN, BLOOD 69 mg/dL (7-18)
[2022-02-24] MEDS ORDERED: NACL 0.9% 2,000 ML IV ONE (10:20)
[2022-02-24] MEDS ORDERED: INSULIN REGULAR, HUMAN 100 UNIT/ML VIAL IVP ONE (10:20)
[2022-02-24 10:23] LABS: ACETONE, SERUM TRACE (NEGATIVE)
--- NOTE | 2022-02-24 10:40 | NUR ---
PT ATTEMPTED TO AMBULATED TO RESTROOM. EN ROUTE TO RESTROOM, PT STARTED FALLING BACK AND WAS ASSISTED TO THE GROUND BY PRIMARY NURSE. PT WAS THEN ASSISTED BACK INTO BED BY 2 NURSES. PT REPORTED THAT HE "TRIPPED". PT DENIED FEELING DIZZY. PT DID NOT HIT HIS HEAD. PT DENIES ANY PAIN S/P FALL, NO INJURIES NOTED, SKIN INTACT. DR EWING MADE AWARE.
--- NOTE | 2022-02-24 10:41 | NUR ---
UNABLE TO OBTAIN IV ACCESS. DR EWING MADE AWARE. ULTRASOUND SET UP AT BEDSIDE
[2022-02-24 10:52] LABS: BASOPHILS # (AUTO) 0.1 K/uL (0.00-0.22); BASOPHILS % (AUTO) 0.3 % (0.0-2.0); EOSINOPHILS % (AUTO) 0.1 % (0.0-4.0); HEMATOCRIT 42.8 % (36-52); HEMOGLOBIN 13.5 g/dL (12.0-18.0); LYMPHOCYTES # (AUTO) 1.4 K/uL (2.0-11.5); LYMPHOCYTES % (AUTO) 6.5 % (20.5-51.1); MEAN CORPUSCULAR HEMOGLOBIN 24 pg (27-31); MEAN CORPUSCULAR HGB CONC 32 g/dL (33-37); MEAN CORPUSCULAR VOLUME 76.2 fL (80-94); MONOCYTES # (AUTO) 0.7 K/uL (0.8-1.0); MONOCYTES % (AUTO) 3.3 % (1.7-9.3); NEUTROPHILS # (AUTO) 19.9 K/uL (1.8-7.7); NEUTROPHILS % (AUTO) 89.8 % (42.2-75.2); PLATELET COUNT (AUTO) 503 K/uL (140-450); RED BLOOD CELL COUNT(AUTO) 5.61 MIL/uL (4.20-6.10); RED CELL DISTRIBUTION WIDTH 15.8 % (11.6-13.7)
[2022-02-24 11:01] LABS: WHITE BLOOD COUNT (AUTO) 22.1 K/uL (4.8-10.8)
[2022-02-24] MEDS ORDERED: MAGNESIUM OXIDE 400 MG TAB PO PRN (11:35)
[2022-02-24] MEDS ORDERED: MORPHINE SULFATE 4 MG/ML SYR IVP PRN (11:35)
[2022-02-24] MEDS ORDERED: POTASSIUM CHLORIDE 10 MEQ TABER PO PRN (11:35)
[2022-02-24] MEDS ORDERED: ACETAMINOPHEN 325 MG TAB PO PRN (11:35)
[2022-02-24] MEDS ORDERED: MAG SULF 2000 MG/WATER PREMIX 50 ML IV PRN (11:35)
[2022-02-24] MEDS ORDERED: KCL 20 MEQ/WATER INJ PREMIX 200 ML IV PRN (11:35)
[2022-02-24] MEDS ORDERED: NACL 0.9% 1,000 ML IV SCH (11:35)
--- NOTE | 2022-02-24 11:38 | NUR ---
QUINTON COLLECTED AND WALKED TO LAB
--- NOTE | 2022-02-24 12:09 | NUR ---
Patient will be admitted to care of DR. JIM. Admited to ICU. Will go to room 8. Belongings list completed. Report to COLLETTE CABAN.
--- NOTE | 2022-02-24 12:20 | NUR ---
Received pt alert and oriented x3. O2 sat 98% on room air. Sinus rhythm on monitor. NPO per DKA protocol. Continent bowel and bladder. Peripheral IV 22 gauge on left upper arm intact and patent. Safety precautions in place.
--- NOTE | 2022-02-24 12:38 | NUR ---
Note lisbeth in EDM - 02/24/22 at 1241 by JOSELYN Patient will be admitted to care of DR. JIM. Admited to ICU. Will go to room 8. Belongings list completed. Report to COLLETTE CABAN.
[2022-02-24] MEDS ORDERED: INSULIN LISPRO SLIDING SCALE 100 UNITS/ML VIAL SUBQ PRN (12:50)
[2022-02-24] MEDS: DEXT 5% / NACL 0.45% 1,000 ML IV SCH ×3 (12:50→22:50)
[2022-02-24] MEDS ORDERED: DEXTROSE 50% 50 ML SYR IVP PRN (12:50)
[2022-02-24] MEDS: BLOOD GLUCOSE MONITORING 1 DEV DEV FS SCH ×11 (12:53→23:56)
--- NOTE | 2022-02-24 12:55 | NUR ---
PATIENT HAS BEEN SCREENED AND CATEGORIZED HIGH NUTRITION RISK. PATIENT WILL BE SEEN WITHIN 1-2 DAYS OF ADMISSION. ALEX HYDE RD
[2022-02-24] MEDS ORDERED: INSULIN REGULAR, HUMAN 100 UNIT in NACL 0.9% 100 ML IV SCH ×4 (13:00)
--- NOTE | 2022-02-24 13:10 | NUR ---
Seen and examined by Dr. Hernández.
[2022-02-24] MEDS: NACL 0.9% 1,000 ML IV SCH ×3 (13:27→23:05)
[2022-02-24] MEDS: MORPHINE SULFATE 2 MG/ML SYR IVP PRN ×2 (13:31→21:16)
[2022-02-24 14:00] VITALS: BP 113/68
[2022-02-24 16:00] VITALS: BP 108/60
[2022-02-24 16:23] LABS: ANION GAP 22.1 (8-16); CARBON DIOXIDE 24.2 mmol/L (21-32); POTASSIUM 4.3 mmol/L (3.5-5.1)
[2022-02-24 16:31] LABS: MAGNESIUM 2.6 mg/dL (1.8-2.4)
[2022-02-24 16:32] LABS: PHOSPHORUS 9.9 mg/dL (2.5-4.9)
[2022-02-24 16:46] LABS: CREATININE 4.6 mg/dL (0.6-1.3)
[2022-02-24] MEDS: SEVELAMER CARBONATE 800 MG TAB PO SCH (16:49)
--- NOTE | 2022-02-24 17:57 | NUR ---
Seen and examined by Dr. Crockett.
[2022-02-24 18:00] VITALS: BP 114/62
--- NOTE | 2022-02-24 19:23 | NUR ---
Endorsed to awake overnight monitor nurse Tabby for continuity of care.
--- NOTE | 2022-02-24 19:37 | NUR ---
"RECEIVED ENDORSEMENT FOR PATIENT CARE FROM DAY SHIFT (COLLETTE CABAN). PATIENT IS CURRENTLY ASLEEP. EASY TO AROUSE; ALERT AND ORIENTED x4. CURRENTLY ON INSULIN DRIP (0.1 UNITS/KG/HR | 5.7ML/HR). INFORMED PATIENT THAT A URINE SAMPLE WILL BE NEEDED. CALL LIGHT PLACED WITHIN REACH. WILL CONTINUE TO MONITOR GLUCOSE LEVELS"
[2022-02-24 20:00] VITALS: BP 129/75
--- NOTE | 2022-02-24 20:00 | NUR ---
AUTOMOTIVE REFINISHER AT BEDSIDE TO DRAW BLOOD
[2022-02-24 20:28] LABS: ANION GAP 20.1 (8-16); POTASSIUM 4.1 mmol/L (3.5-5.1)
[2022-02-24 20:29] LABS: MAGNESIUM 2.7 mg/dL (1.8-2.4); PHOSPHORUS 8.4 mg/dL (2.5-4.9)
[2022-02-24 20:30] LABS: CREATININE 4.2 mg/dL (0.6-1.3)
--- NOTE | 2022-02-24 20:30 | NUR ---
RECEIVED PHONE CALL FROM TIANA IN THE LAB. CRITICAL LABS: BUN = 78 CR = 4.2 GLUCOSE = [address] SHIELDS TO INFORM HIM OF CRITICAL LABS. NO NEW ORDERS GIVEN, PATIENT TO CONTINUE CURRENT DKA PROTOCOL.
--- NOTE | 2022-02-24 21:16 | NUR ---
PATIENT WITH COMPLAINTS OF ABDOMINAL PAIN; ADMINISTERED MORPHINE PER MD ORDERS. WILL CONTINUE TO MONITOR PATIENT
[2022-02-24 22:00] VITALS: BP 126/76
--- NOTE | 2022-02-24 23:45 | NUR ---
PATIENT REPORTS VOMITING; EMESIS BAG CONTAINED APPROXIMATELY 15ML'S OF LIQUID. ADMINISTERED ONDANSETRON PER MD ORDERS. WILL CONTINUE TO MONITOR PATIENT Addendum: 02/25/22 at 0031 by Tabby Jamison RN [id number]
[2022-02-24] MEDS: ONDANSETRON 4 MG/2 ML VIAL IVP PRN (23:51)
[2022-02-25] VITALS (9 sets, daily range): BP systolic 119–187; BP diastolic 57–119
--- NOTE | 2022-02-25 00:08 | NUR ---
HEALTH CARE SANITARY TECHNICIAN AT BEDSIDE TO OBTAIN BLOOD SAMPLE.
[2022-02-25 00:29] LABS: ANION GAP 14.8 (8-16); CARBON DIOXIDE 30.9 mmol/L (21-32); CREATININE 3.6 mg/dL (0.6-1.3); POTASSIUM 3.7 mmol/L (3.5-5.1)
[2022-02-25 00:33] LABS: MAGNESIUM 2.6 mg/dL (1.8-2.4); PHOSPHORUS 6.6 mg/dL (2.5-4.9)
--- NOTE | 2022-02-25 00:33 | NUR ---
RECEIVED CALL FROM WISAM IN THE LAB. CRITICAL LAB RESULTS: GLUCOSE = 412 PATIENT ADMITTED FOR DKA, HAS HOURLY GLUCOSE CHECKS, AND IS ON INSULIN DRIP. WILL CONTINUE TO MONITOR PATIENT
[2022-02-25] MEDS: BLOOD GLUCOSE MONITORING 1 DEV DEV FS SCH ×11 (01:08→20:55)
[2022-02-25] MEDS: MORPHINE SULFATE 2 MG/ML SYR IVP PRN ×4 (01:57→20:50)
--- NOTE | 2022-02-25 02:11 | NUR ---
PATIENT WITH COMPLAINTS OF ABDOMINAL PAIN ADMINISTERED MORPHINE PER MD ORDERS WILL CONTINUE TO MONITOR PATIENT
--- NOTE | 2022-02-25 02:59 | NUR ---
PATIENT WITH BLOOD SUGAR = 117 INSULIN DRIP TITRATED FROM 0.1 UNITS/KG/HR TO 0.05 UNITS/KG/HR. IVF CHANGED FROM NS TO D5 07/25 NS WILL CONTINUE TO MONITOR THIS PATIENT Addendum: 02/25/22 at 0407 by Tabby Jamison RN 114
[2022-02-25] MEDS: NACL 0.9% 1,000 ML IV SCH ×2 (03:50→11:00)
[2022-02-25] MEDS: DEXT 5% / NACL 0.45% 1,000 ML IV SCH (04:03)
--- NOTE | 2022-02-25 04:15 | NUR ---
PATIENT NOTED WITH BLOOD SUGAR OF 48; PHONE CALL PLACED TO DR. SHIELDS. LABS REVIEWED (BUN, CR, ANION GAP). INSULIN DRIP HAS BEEN PAUSED WILL CONTINUE WITH IVF = D5 1/2 NS WILL CONTINUE TO MONITOR PATIENT
[2022-02-25 04:25] LABS: BASOPHILS # (AUTO) 0.2 K/uL (0.00-0.22); BASOPHILS % (AUTO) 1.1 % (0.0-2.0); EOSINOPHILS # (AUTO) 0.1 K/uL (0-0.4); EOSINOPHILS % (AUTO) 0.4 % (0.0-4.0); HEMATOCRIT 41.7 % (36-52); HEMOGLOBIN 13.6 g/dL (12.0-18.0); LYMPHOCYTES # (AUTO) 2.8 K/uL (2.0-11.5); LYMPHOCYTES % (AUTO) 15.3 % (20.5-51.1); MEAN CORPUSCULAR HEMOGLOBIN 25 pg (27-31); MEAN CORPUSCULAR HGB CONC 33 g/dL (33-37); MEAN CORPUSCULAR VOLUME 75.5 fL (80-94); MONOCYTES # (AUTO) 0.8 K/uL (0.8-1.0); MONOCYTES % (AUTO) 4.5 % (1.7-9.3); NEUTROPHILS # (AUTO) 14.5 K/uL (1.8-7.7); NEUTROPHILS % (AUTO) 78.7 % (42.2-75.2); PLATELET COUNT (AUTO) 449 K/uL (140-450); RED BLOOD CELL COUNT(AUTO) 5.52 MIL/uL (4.20-6.10); RED CELL DISTRIBUTION WIDTH 15.6 % (11.6-13.7); WHITE BLOOD COUNT (AUTO) 18.4 K/uL (4.8-10.8)
[2022-02-25 04:37] LABS: ALBUMIN 4.1 g/dL (3.4-5.0); ANION GAP 17.1 (8-16); CARBON DIOXIDE 31.5 mmol/L (21-32); CREATININE 3.3 mg/dL (0.6-1.3); POTASSIUM 3.6 mmol/L (3.5-5.1); TOTAL BILIRUBIN 0.3 mg/dL (0.0-1.0)
[2022-02-25] MEDS: HYDROcodone/APAP 5/325 MG 1 TAB TAB PO PRN ×3 (05:47→23:20)
--- NOTE | 2022-02-25 07:10 | NUR ---
CARE OF PATIENT ENDORSED TO DAY SHIFT (COLLETTE TAVAREZ)
--- NOTE | 2022-02-25 07:20 | NUR ---
RECEIVED REPORT FROM MICHAEL MURDOCK FOR CONTINUITY OF CARE. PT ALERT, PERRLA. ROOM AIR, LUNGS CLEAR. SR ON MONITOR. 22G IV TO LFA. NPO. BOWEL SOUNDS ACTIVE. MILD WEAKNESS TO EXTREMITIES. STANDARD PRECAUTION, CALL LIGHT WITHIN REACH, BED IN LOWEST POSITION.
[2022-02-25] MEDS: SEVELAMER CARBONATE 800 MG TAB PO SCH ×3 (08:14→16:38)
--- NOTE | 2022-02-25 08:15 | NUR ---
SEEN AND EXAMINED BY DR. JIM. ORDERS RECEIVED.
[2022-02-25] MEDS: ONDANSETRON 4 MG/2 ML VIAL IVP PRN ×2 (08:40→14:41)
--- NOTE | 2022-02-25 08:45 | NUR ---
PT VOMITED 250ML. MEDICATED WITH PRN ZOFRAN 4MG IVP.
[2022-02-25] MEDS: INSULIN LANTUS 100 UNITS/ML 10 ML VIAL SUBQ SCH (09:15)
--- NOTE | 2022-02-25 09:30 | NUR ---
PT REPORTS DECREASED NAUSEA. RESTING COMFORTABLY IN BED, RESPIRATIONS EVEN AND UNLABORED. CALL LIGHT WITHIN REACH.
[2022-02-25 09:57] LABS: ANION GAP 16.7 (8-16); CARBON DIOXIDE 31.9 mmol/L (21-32); POTASSIUM 3.6 mmol/L (3.5-5.1)
[2022-02-25 09:58] LABS: APPEARANCE,URINE CLEAR (CLEAR); BILIRUBIN,URINE 1+ (NEGATIVE); BLOOD, URINE NEGATIVE (NEGATIVE); COLOR,URINE YELLOW (YELLOW); LEUKOCYTE ESTERASE ,URINE NEGATIVE (NEGATIVE); NITRITE, URINE NEGATIVE (NEGATIVE); PH,URINE 5.5 (5.0-9.0); UGLUCOSE 3+ (NEGATIVE)
[2022-02-25 10:01] LABS: MAGNESIUM 2.9 mg/dL (1.8-2.4); PHOSPHORUS 5.6 mg/dL (2.5-4.9)
[2022-02-25 10:17] LABS: BARBITURATE, URINE NEGATIVE ng/ml (NEG <=200); BENZODIAZEPINE, URINE NEGATIVE ng/mL (NEG <=200); CANNABINOID, URINE POSITIVE ng/mL (NEG <=50); COCAINE, URINE NEGATIVE ng/mL (NEG <=300); OPIATE, URINE POSITIVE ng/mL (NEG <=2000); PHENCYCLIDINE SCREEN,URINE NEGATIVE ng/mL (NEG <=25)
[2022-02-25 10:24] LABS: RBC,URINE 0-5 /HPF (0-5); WBC,URINE 0-5 /HPF (0-5)
--- NOTE | 2022-02-25 14:30 | NUR ---
SEEN AND EXAMINED BY DR. SANCHES. ORDERS RECEIVED.
[2022-02-25] MEDS: NACL 0.45% 1,000 ML IV SCH ×2 (14:40→23:21)
--- NOTE | 2022-02-25 14:41 | NUR ---
PT REPORTS 10/10 ABD PAIN WELL NAUSEA. MEDICATED WITH PRN MORPHINE AND ZOFRAN.
--- NOTE | 2022-02-25 15:29 | NUR ---
02/25/22 RD INITIAL ASSESSMENT COMPLETED PLEASE REFER TO NUTRITION ASSESSMENT UNDER CARE ACTIVITY FOR ESTIMATED NUTRITIONAL NEEDS. 1. CONTINUE CCHO 60 GMS DIET TOLERATED 2. RECOMMEND ADDING GLUCERNA BID -GLUCERNA WILL PROVIDE: 440 KCAL AND 20 G OF PROTEIN, DAILY. 3. MONITOR PO INTAKE AND GI SYMPTOMS. 4. RD TO FOLLOW-UP 3-5 DAYS, MODERATE RISK REVIEWED BY ALEX HYDE RD
--- NOTE | 2022-02-25 16:38 | NUR ---
ASSESSED BLOOD GLUCOSE SCHEDULED. GLUCOSE IS 32. GAVE PT APPLE JUICE WITH SUGAR PACKETS.
[2022-02-25] MEDS ORDERED: PROMETHAZINE 25 MG TAB PO PRN (18:15)
--- NOTE | 2022-02-25 18:33 | NUR ---
REASSESSED BLOOD GLUCOSE, IT IS 129. NO INSULIN NEEDED. PT RESTING IN BED, RESPIRATIONS EVEN AND UNLABORED.
--- NOTE | 2022-02-25 19:17 | NUR ---
ENDORSED REPORT TO MICHAEL MULTI NEEDLE MACHINE OPERATOR RN, FOR CONTINUITY OF CARE.
--- NOTE | 2022-02-25 19:28 | NUR ---
RECEIVED ENDORSEMENT FROM DAY SHIFT (COLLETTE TAVAREZ). PATIENT IS PENDING TRANSFER TO MED SURG UNIT. PATIENT IS AWAKE, ALERT, AND ORIENTED. ABLE TO MAKE ALL NEEDS KNOWN. WILL CONTINUE TO MONITOR PATIENT NEEDED.
[2022-02-25] MEDS: INSULIN LISPRO SLIDING SCALE 100 UNITS/ML VIAL SUBQ PRN (21:01)
--- NOTE | 2022-02-25 21:30 | NUR ---
RECEIVED PT FROM ICU.PLACED ON BED.ORIENTED TO ROOM.PT IS A,A&O .IVF OF 125ML/H INFUSING VIA IV LINE IN LT U ARM, BUT IV IS INFILTRATED AND HAS SEVERE EDEMA ON LT.ARM.DISCONNECTED FOR NOW WILL TRY FOR ANOTHER LINE.NO DISTRESS NOTED AT THIS TIME.
--- NOTE | 2022-02-25 22:29 | NUR ---
PT IS VERY HARD STICK TOOK ANOTHER LINE IN RT.HAND W/#22G AFTER SEVERAL ATTEMPT.RESTARTED IVF .
--- NOTE | 2022-02-26 02:41 | NUR ---
HAD C/O ABD.PAIN EARLIER.PO MED GIVEN.HE IS SLEEPING NOW W/ O S/S OF PAIN.
[2022-02-26 04:00] VITALS: BP 118/75
[2022-02-26] MEDS: MORPHINE SULFATE 2 MG/ML SYR IVP PRN ×2 (06:01→20:29)
--- NOTE | 2022-02-26 06:03 | NUR ---
BS=50.GRAPE JUICE W/SUGAR GIVEN.WILL CKECK BS LATER.
[2022-02-26] MEDS: BLOOD GLUCOSE MONITORING 1 DEV DEV FS SCH ×4 (06:12→20:27)
--- NOTE | 2022-02-26 06:35 | NUR ---
RECHECKED BS=89.
[2022-02-26 07:26] LABS: ALBUMIN 2.9 g/dL (3.4-5.0); ANION GAP 8.4 (8-16); CARBON DIOXIDE 32.4 mmol/L (21-32); CREATININE 1.4 mg/dL (0.6-1.3); MAGNESIUM 2.2 mg/dL (1.8-2.4); TOTAL BILIRUBIN 0.3 mg/dL (0.0-1.0)
--- NOTE | 2022-02-26 07:28 | NUR ---
endorsed to am rn in stable condition.
[2022-02-26 07:32] LABS: POTASSIUM 2.8 mmol/L (3.5-5.1)
[2022-02-26 07:34] LABS: BASOPHILS # (AUTO) 0.1 K/uL (0.00-0.22); BASOPHILS % (AUTO) 0.6 % (0.0-2.0); EOSINOPHILS # (AUTO) 0.2 K/uL (0-0.4); EOSINOPHILS % (AUTO) 2.3 % (0.0-4.0); HEMATOCRIT 34.9 % (36-52); HEMOGLOBIN 11.4 g/dL (12.0-18.0); LYMPHOCYTES # (AUTO) 2.3 K/uL (2.0-11.5); LYMPHOCYTES % (AUTO) 24.9 % (20.5-51.1); MEAN CORPUSCULAR HEMOGLOBIN 25 pg (27-31); MEAN CORPUSCULAR HGB CONC 33 g/dL (33-37); MEAN CORPUSCULAR VOLUME 75.7 fL (80-94); MONOCYTES # (AUTO) 0.6 K/uL (0.8-1.0); MONOCYTES % (AUTO) 6.3 % (1.7-9.3); NEUTROPHILS # (AUTO) 6.1 K/uL (1.8-7.7); NEUTROPHILS % (AUTO) 65.9 % (42.2-75.2); PLATELET COUNT (AUTO) 338 K/uL (140-450); RED BLOOD CELL COUNT(AUTO) 4.61 MIL/uL (4.20-6.10); RED CELL DISTRIBUTION WIDTH 15.1 % (11.6-13.7); WHITE BLOOD COUNT (AUTO) 9.2 K/uL (4.8-10.8)
--- NOTE | 2022-02-26 08:00 | NUR ---
RECEIVED IN BED ASSESSMNET COMPLETED PLAN OF CARE REVIEWED WILL CONTINUE TO MONITOR AND ASSESS
[2022-02-26] MEDS: SEVELAMER CARBONATE 800 MG TAB PO SCH ×3 (08:41→16:42)
[2022-02-26] MEDS: INSULIN LANTUS 100 UNITS/ML 10 ML VIAL SUBQ SCH (08:43)
[2022-02-26] MEDS: NACL 0.45% 1,000 ML IV SCH (08:46)
[2022-02-26] MEDS: HYDROcodone/APAP 5/325 MG 1 TAB TAB PO PRN ×3 (08:53→18:43)
[2022-02-26] MEDS: POTASSIUM CHL 40 MEQ/ D5-1/2NS 1,000 ML IV SCH ×2 (11:23→20:27)
[2022-02-26] MEDS: INSULIN LISPRO SLIDING SCALE 100 UNITS/ML VIAL SUBQ PRN ×2 (11:26→16:42)
--- NOTE | 2022-02-26 12:00 | NUR ---
NO SIGNIFICANT CHANGES NOTED AT THIS TIME WILL CONTINUE TO MONOTIR AND ASSESS
--- NOTE | 2022-02-26 18:35 | NUR ---
ALL NEEDS ANTICIPTED AND MET
--- NOTE | 2022-02-26 18:37 | NUR ---
PT ASKED FOR NORCO Q 1-2 HOURS THROUOGHOUT SHIFT MADE AWARE PAIN MED Q 4 HOURS UPON GOING IN ROOM PT ASLEEP AND PPEARS COMFORTABLE THROUGHOUT SHIFT
--- NOTE | 2022-02-26 18:44 | NUR ---
COMPLAINED OF ABDOMINAL PAIN NORCO GIVEN PER PT REQUEST
[2022-02-26 20:00] VITALS: BP 112/75
[2022-02-26 21:37] LABS: ANION GAP 8.4 (8-16); CARBON DIOXIDE 30.2 mmol/L (21-32); CREATININE 1.2 mg/dL (0.6-1.3); POTASSIUM 4.6 mmol/L (3.5-5.1)
[2022-02-27] MEDS: MORPHINE SULFATE 2 MG/ML SYR IVP PRN (03:03)
[2022-02-27 04:00] VITALS: BP 118/68
[2022-02-27] MEDS: POTASSIUM CHL 40 MEQ/ D5-1/2NS 1,000 ML IV SCH (06:38)
[2022-02-27] MEDS: BLOOD GLUCOSE MONITORING 1 DEV DEV FS SCH ×2 (06:38→11:56)
--- NOTE | 2022-02-27 07:30 | NUR ---
RECEIVED PATIENT FROM GAS PLUMBING INSPECTOR NURSE FOR CONTINUITY OF CARE. PT IS AOX4, ABLE TO MAKE NEEDS KNOWN. ON ROOM AIR AND NO DISTRESS NOTED. SKIN IS WARM, DRY, AND INTACT. IV SITE ON RH 22 G INTACT AND PATENT, INFUSING FLUIDS ORDERED. DENIES PAIN AT THE MOMENT. PLAN OF CARE DISCUSSED. SAFETY PRECAUTIONS IN PLACE. CALL LIGHT WITHIN REACH. WILL CONTINUE TO MONITOR.
[2022-02-27 07:40] LABS: ALBUMIN 2.8 g/dL (3.4-5.0); ANION GAP 8.8 (8-16); CARBON DIOXIDE 27.5 mmol/L (21-32); MAGNESIUM 2.2 mg/dL (1.8-2.4); POTASSIUM 5.3 mmol/L (3.5-5.1); TOTAL BILIRUBIN 0.4 mg/dL (0.0-1.0)
[2022-02-27 07:41] LABS: BASOPHILS # (AUTO) 0.1 K/uL (0.00-0.22); BASOPHILS % (AUTO) 0.8 % (0.0-2.0); EOSINOPHILS # (AUTO) 0.1 K/uL (0-0.4); EOSINOPHILS % (AUTO) 1.9 % (0.0-4.0); HEMATOCRIT 36.3 % (36-52); HEMOGLOBIN 11.6 g/dL (12.0-18.0); LYMPHOCYTES # (AUTO) 1.9 K/uL (2.0-11.5); LYMPHOCYTES % (AUTO) 27.7 % (20.5-51.1); MEAN CORPUSCULAR HEMOGLOBIN 25 pg (27-31); MEAN CORPUSCULAR HGB CONC 32 g/dL (33-37); MEAN CORPUSCULAR VOLUME 76.4 fL (80-94); MONOCYTES # (AUTO) 0.4 K/uL (0.8-1.0); MONOCYTES % (AUTO) 5.7 % (1.7-9.3); NEUTROPHILS # (AUTO) 4.3 K/uL (1.8-7.7); NEUTROPHILS % (AUTO) 63.9 % (42.2-75.2); PLATELET COUNT (AUTO) 301 K/uL (140-450); RED BLOOD CELL COUNT(AUTO) 4.74 MIL/uL (4.20-6.10); RED CELL DISTRIBUTION WIDTH 15.2 % (11.6-13.7); WHITE BLOOD COUNT (AUTO) 6.7 K/uL (4.8-10.8)
[2022-02-27 08:00] VITALS: BP 99/61
[2022-02-27] MEDS: INSULIN LANTUS 100 UNITS/ML 10 ML VIAL SUBQ SCH (08:30)
[2022-02-27] MEDS: SEVELAMER CARBONATE 800 MG TAB PO SCH ×2 (08:30→11:56)
--- NOTE | 2022-02-27 09:45 | NUR ---
ALL SCHEDULED MEDS GIVEN. PT IS STABLE. NO DISTRESS NOTED. WILL CONTINUE TO MONITOR.
[2022-02-27] MEDS ORDERED: SODIUM POLYSTYRENE 15 GM/60 ML UDBTL PR SCH (10:00)
[2022-02-27] MEDS ORDERED: SODIUM POLYSTYRENE 15 GM/60 ML UDBTL PO SCH (10:00)
[2022-02-27] MEDS: HYDROcodone/APAP 5/325 MG 1 TAB TAB PO PRN (10:58)
[2022-02-27] MEDS: INSULIN LISPRO SLIDING SCALE 100 UNITS/ML VIAL SUBQ PRN (11:57)
[2022-02-27 12:36] VITALS: BP 101/64
--- NOTE | 2022-02-27 12:45 | NUR ---
ENDORSED DISCHARGE INSTRUCTIONS TO PATIENT. PT VERBALIZED UNDERSTANDING AND SIGNED DISCHARGE FORMS.
--- NOTE | 2022-02-27 12:55 | NUR ---
DISCHARGED PATIENT OFF THE UNIT. ESCORTED TO THE FRONT LOBBY. PT WAS STABLE PRIOR TO DISCHARGE.
== END 2022-02-27 13:03 | disposition home or self-care (01) | DRG 469 ==
LOC: MED 08:05 → MMU 11:35 → MIC 11:42 → MTU 02-25 21:25
PROVIDERS: ADMIT Internal Medicine; ATTEND Internal Medicine
DX: N17.9 Acute kidney failure, unspecified (principal); R65.11 Systemic inflammatory response syndrome (SIRS) of non-infectious origin with acute organ dysfunction; E10.10 Type 1 diabetes mellitus with ketoacidosis without coma; E44.1 Mild protein-calorie malnutrition; E83.39 Other disorders of phosphorus metabolism; J45.909 Unspecified asthma, uncomplicated; Z20.822 Contact with and (suspected) exposure to COVID-19; F17.210 Nicotine dependence, cigarettes, uncomplicated; E86.1 Hypovolemia; Z79.4 Long term (current) use of insulin; Z88.0 Allergy status to penicillin; Z88.8 Allergy status to other drugs, medicaments and biological substances; E83.41 Hypermagnesemia
CPT/HCPCS: 36415; 36556; 36600; 76770; 80048; 80053; 80305; 81001; 82009; 82550; 82553; 82803; 82948; 83690; 83735; 84100; 85025; 87040; 87081; 96361; 96372; 96374; 99285; J1630; J1644; J1815; J2270; J2405; J3480; J7030; Q0092

== ENCOUNTER 2022-03-20 00:10 | Emergency (ER) | payer OTHER ==
[~2022-03-20] VITALS: Ht 165.1 cm; Wt 58.5 kg
[2022-03-20 00:45] VITALS: BP 109/59
--- NOTE | 2022-03-20 00:48 | NUR ---
TO LOBBY A/W BED AMBULATORY
--- NOTE | 2022-03-20 00:55 | NUR ---
SEEN AND EXAMINED BY DONNA
[2022-03-20 01:30] VITALS: BP 115/70
== END 2022-03-20 01:30 | disposition home or self-care (01) ==
LOC: MED 00:10
DX: E11.649 Type 2 diabetes mellitus with hypoglycemia without coma (principal); J45.909 Unspecified asthma, uncomplicated; Z79.4 Long term (current) use of insulin; Z79.899 Other long term (current) drug therapy; Z88.0 Allergy status to penicillin; Z91.011 Allergy to milk products
CPT/HCPCS: 99283

== ENCOUNTER 2022-03-27 11:24 | Emergency (ER) | payer OTHER ==
[~2022-03-27] VITALS: Ht 165.1 cm; Wt 54.0 kg
[2022-03-27 11:31] VITALS: BP 109/63
[2022-03-27] MEDS ORDERED: DEXTROSE ORAL 15 GM TUBE PO ONE (11:40)
[2022-03-27] MEDS ORDERED: DEXTROSE 50% 50 ML SYR IVP ONE (11:40)
[2022-03-27] MEDS ORDERED: DEXT 5% / NACL 0.9% 500 ML IV ONE (11:40)
[2022-03-27 12:07] LABS: BASOPHILS % (AUTO) 0.7 % (0.0-2.0); EOSINOPHILS # (AUTO) 0.2 K/uL (0-0.4); EOSINOPHILS % (AUTO) 2.3 % (0.0-4.0); HEMATOCRIT 36.9 % (36-52); HEMOGLOBIN 12.1 g/dL (12.0-18.0); LYMPHOCYTES # (AUTO) 1.5 K/uL (2.0-11.5); LYMPHOCYTES % (AUTO) 21.8 % (20.5-51.1); MEAN CORPUSCULAR HEMOGLOBIN 25 pg (27-31); MEAN CORPUSCULAR HGB CONC 33 g/dL (33-37); MEAN CORPUSCULAR VOLUME 75.1 fL (80-94); MONOCYTES # (AUTO) 0.4 K/uL (0.8-1.0); MONOCYTES % (AUTO) 5.1 % (1.7-9.3); NEUTROPHILS % (AUTO) 70.1 % (42.2-75.2); PLATELET COUNT (AUTO) 416 K/uL (140-450); RED BLOOD CELL COUNT(AUTO) 4.91 MIL/uL (4.20-6.10); RED CELL DISTRIBUTION WIDTH 16.3 % (11.6-13.7); WHITE BLOOD COUNT (AUTO) 7.1 K/uL (4.8-10.8)
[2022-03-27 12:30] LABS: ALBUMIN 3.5 g/dL (3.4-5.0); ANION GAP 15.8 (8-16); CARBON DIOXIDE 28.6 mmol/L (21-32); CREATININE 1.4 mg/dL (0.6-1.3); POTASSIUM 3.4 mmol/L (3.5-5.1); TOTAL BILIRUBIN 0.3 mg/dL (0.0-1.0)
[2022-03-27] MEDS ORDERED: POTASSIUM CHLORIDE 10 MEQ TABER PO ONE (13:10)
[2022-03-27 16:04] VITALS: BP 168/99
== END 2022-03-27 16:04 | disposition home or self-care (01) ==
LOC: MED 11:24
DX: E10.649 Type 1 diabetes mellitus with hypoglycemia without coma (principal); N17.9 Acute kidney failure, unspecified; J45.909 Unspecified asthma, uncomplicated; Z79.899 Other long term (current) drug therapy; Z88.0 Allergy status to penicillin; Z88.8 Allergy status to other drugs, medicaments and biological substances; Z91.011 Allergy to milk products
CPT/HCPCS: 36415; 80053; 83605; 83690; 85025; 87040; 99283

== ENCOUNTER 2022-03-29 14:14 | Inpatient (IN) | payer OTHER ==
[~2022-03-29] VITALS: Ht 165.1 cm; Wt 56.2 kg
[2022-03-29 14:16] VITALS: BP 102/49
[2022-03-29 15:17] LABS: BASOPHILS # (AUTO) 0.1 K/uL (0.00-0.22); BASOPHILS % (AUTO) 0.9 % (0.0-2.0); EOSINOPHILS % (AUTO) 0.6 % (0.0-4.0); HEMATOCRIT 34.2 % (36-52); HEMOGLOBIN 11.2 g/dL (12.0-18.0); LYMPHOCYTES % (AUTO) 32.8 % (20.5-51.1); MEAN CORPUSCULAR HEMOGLOBIN 24 pg (27-31); MEAN CORPUSCULAR HGB CONC 33 g/dL (33-37); MEAN CORPUSCULAR VOLUME 74.2 fL (80-94); MONOCYTES # (AUTO) 0.4 K/uL (0.8-1.0); MONOCYTES % (AUTO) 6.3 % (1.7-9.3); NEUTROPHILS # (AUTO) 3.6 K/uL (1.8-7.7); NEUTROPHILS % (AUTO) 59.4 % (42.2-75.2); PLATELET COUNT (AUTO) 442 K/uL (140-450); RED BLOOD CELL COUNT(AUTO) 4.61 MIL/uL (4.20-6.10); WHITE BLOOD COUNT (AUTO) 6.1 K/uL (4.8-10.8)
[2022-03-29 15:41] LABS: ALBUMIN 3.8 g/dL (3.4-5.0); ANION GAP 20.8 (8-16); ASPARTATE AMINOTRANSFERASE 23 U/L (15-37); CARBON DIOXIDE 24.4 mmol/L (21-32); CHLORIDE 93 mmol/L (98-107); CREATININE 2.7 mg/dL (0.6-1.3); GFR ARICAN-AMERICAN 35 mL/min (>90); GLUCOSE 323 mg/dL (74-106); MAGNESIUM 2.8 mg/dL (1.8-2.4); POTASSIUM 4.2 mmol/L (3.5-5.1); SODIUM SERUM 134 mmol/L (136-145); TOTAL BILIRUBIN 0.5 mg/dL (0.0-1.0); UREA NITROGEN, BLOOD 38 mg/dL (7-18)
[2022-03-29] MEDS ORDERED: LACTATED RINGERS 1,000 ML IV ONE ×2 (16:50→17:35)
--- NOTE | 2022-03-29 17:15 | NUR ---
31 Y/O MALE C/O DIZZINESS, DIAPHORETIC AND STATES HE HAD A SYNCOPAL EPISODE TODAY. PATIENT STATES "I THINK MY SUGAR IS LOW" DENIES CHECKING PASTRYCOOK. BS IN TRIAGE 370, APPEARS PALE, SKIN COOL TO TOUCH. DENIES ANY PAIN AT THIS TIME PMH: DM, ASTHMA ALLERGIES: PENICILLINS, LACTOSE, REGLAN
--- NOTE | 2022-03-29 17:34 | NUR ---
PT UNABLE TO PROVIDE URINE AT THIS TIME
[2022-03-29] MEDS ORDERED: HYDROcodone/APAP 5/325 MG 1 TAB TAB PO PRN (18:50)
[2022-03-29] MEDS ORDERED: POTASSIUM CHLORIDE 10 MEQ TABER PO PRN (18:50)
[2022-03-29] MEDS ORDERED: INSULIN LISPRO 100 UNITS/ML VIAL SUBQ ONE (18:50)
[2022-03-29] MEDS ORDERED: MAGNESIUM OXIDE 400 MG TAB PO PRN (18:50)
[2022-03-29] MEDS ORDERED: MAG SULF 2000 MG/WATER PREMIX 50 ML IV PRN (18:50)
[2022-03-29] MEDS ORDERED: ACETAMINOPHEN 325 MG TAB PO PRN (18:50)
[2022-03-29] MEDS ORDERED: INSULIN LANTUS 100 UNITS/ML 10 ML VIAL SUBQ ONE (18:50)
[2022-03-29] MEDS ORDERED: ONDANSETRON 4 MG/2 ML VIAL IVP PRN (18:50)
--- NOTE | 2022-03-29 19:10 | NUR ---
Pt report given to GOMEZ MURDOCK. Transfer of care at this time.
--- NOTE | 2022-03-29 20:00 | NUR ---
CALL TO GIVE REPORT, NURSE UNAVAILABLE AT THIS TIME
--- NOTE | 2022-03-29 20:10 | NUR ---
[id number] ACC[facility]IED BY [facility]
--- NOTE | 2022-03-29 20:16 | NUR ---
RECEIVED PATIENT FROM ER NURSE VIA [facility]. PATIENT IS ALERT AND AWAKE. NO COMPLAIN OF PAIN AT THIS TIME.IV INTACT,NO DISTRESS NOTED
--- NOTE | 2022-03-29 20:30 | NUR ---
REPORT GIVEN TO COLLETTE RICHARDS
--- NOTE | 2022-03-30 | NUR ---
PATIENT ASLEEP,BREATHING EVEN AND UNLABORED,NO DISTRESS NOTED. ALL SAFETY MEASURES IN PLACE
[2022-03-30] MEDS: NACL 0.9% 1,000 ML IV SCH ×3 (02:53→19:50)
[2022-03-30 04:00] VITALS: BP 105/62
--- NOTE | 2022-03-30 04:00 | NUR ---
MESSAGED DR STEINBERG , PATIENT HAS NO ACCUCHECKS, PATIENT WAS ADMITTED WITH HIGH BLOOD SUGAR,STILL AWAITING RESPONSE
[2022-03-30 07:06] LABS: ANION GAP 14.7 (8-16); CARBON DIOXIDE 28.5 mmol/L (21-32); POTASSIUM 3.2 mmol/L (3.5-5.1)
--- NOTE | 2022-03-30 07:28 | NUR ---
RECEIVED REPORT FROM [facility] NURSE FOR CONTINUITY OF CARE. PATIENT AWAKE NO DISTRESS NOTED. PATIENT RESPIRATION EVEN AND NOT LABORED ON ROOM AIR. NO COMPLAIN OF PAIN AT THIS TIME. IV SITE ON RIGHT FINGER KARI 22 SALINE LOCK CALL LIGHT WITH IN EASY REACH.
--- NOTE | 2022-03-30 07:36 | NUR ---
RECEIVED CALL FROM LAB WITH [facility] GLUCOSE 28. PATIENT AWAKE AND JUST CHECK AT 0700 BLOOD SUGAR IS 224. SKIN DRY AND WARM TO TOUCH. NO CHANGE IN MENTAL STATUS ALERT ORIENTED.
[2022-03-30 08:00] VITALS: BP 99/61
--- NOTE | 2022-03-30 08:00 | NUR ---
DR. JIM RESPONDED TO PUT PATIENT ON ACCU CHECK AC AND HS ORDER NOTED AND CARRIED OUT PATIENT AWARE.
[2022-03-30 08:45] LABS: ALBUMIN 3.1 g/dL (3.4-5.0); ANION GAP 16.6 (8-16); CARBON DIOXIDE 26.6 mmol/L (21-32); CREATININE 2.1 mg/dL (0.6-1.3); MAGNESIUM 2.4 mg/dL (1.8-2.4); POTASSIUM 3.2 mmol/L (3.5-5.1); TOTAL BILIRUBIN 0.3 mg/dL (0.0-1.0)
[2022-03-30] MEDS ORDERED: INSULIN LANTUS 100 UNITS/ML 10 ML VIAL SUBQ SCH (09:00)
[2022-03-30] MEDS: DOCUSATE SODIUM 100 MG GELCAP PO SCH (09:00)
--- NOTE | 2022-03-30 09:06 | NUR ---
PATIENT HAS BEEN SCREENED AND CATEGORIZED HIGH NUTRITION RISK. PATIENT WILL BE SEEN WITHIN 1-2 DAYS OF ADMISSION. 03/30/22-03/31/22 [address]VIEW[address] BY ALEX HYDE RD
--- NOTE | 2022-03-30 09:23 | NUR ---
GIVEN PATIENT LANTUS AND HEPARIN REFUSED STOOL SOFTENER STATED I DON'T NEED IT.
--- NOTE | 2022-03-30 11:00 | NUR ---
PATIENT URINATED BUT HE SAID HE LOST THE URINE SPECIMEN CUP PROVIDED ANOTHER ONE AND INSTRUCTED HOW TO GET CLEAN CATCH. CALL LIGHT WITH IN EASY REACH.
[2022-03-30 12:00] VITALS: BP 108/72
[2022-03-30] MEDS: BLOOD GLUCOSE MONITORING 1 DEV DEV FS SCH ×3 (12:06→20:43)
[2022-03-30] MEDS: INSULIN LISPRO SLIDING SCALE 100 UNITS/ML VIAL SUBQ PRN ×3 (12:07→20:49)
[2022-03-30] MEDS ORDERED: POTASSIUM CHLORIDE 10 MEQ TABER PO SCH (13:30)
--- NOTE | 2022-03-30 14:48 | NUR ---
03/30/22 RD INITIAL ASSESSMENT COMPLETED PLEASE REFER TO NUTRITION ASSESSMENT UNDER CARE ACTIVITY FOR ESTIMATED NUTRITIONAL NEEDS. 1. RECOMMEND CCHO 60 GM + RENAL DIET TOLERATED 2. MONITOR NUTRITION RELATED LAB VALUES 3. RD TO FOLLOW-UP 3-5 DAYS, MODERATE RISK REVIEWED BY ALEX HYDE RD
--- NOTE | 2022-03-30 14:53 | NUR ---
MARY PLANNING SW MET WITH PATIENT AT BEDSIDE TO COMPLETE ASSESSMENT. PATIENT REPORTS RESIDING AT THE ADDRESS ON FILE, [facility] HOME, FOR THE LAST 7 MONTHS. PATIENT IDENTIFIES JESUS SOLANO (ELECTRICAL MAINTENANCE TECHNICIAN) [phone] AND SHARONA (MOM) [phone] EMERGENCY CONTACT AND MEDICAL DECISION MAKER. PATIENT DENIED AD IN PLACE AND DECLINED AD OFFERED BY SW. PATIENT REPORTS BEING CONSISTENT WITH MEETING WITH PCP AND REPORTS LAST VISIT, MAR 14. PATIENT REPORTS RX COMPLIANCE AND DENIES BARRIERS IN ACQUIRING NEEDED MEDICATIONS. PATIENT REPORTS RECEIVING MEDIATIONS FROM [facility] ON [address] IN THE [facility] ON [address], WHEN NEEDED. PATIENT REPORTS HX OF DIABETES AND REPORTS NUTRITIONAL COMPLIANCE. PATIENT REPORTS ADEQUATE FOOD SOURCES. PATIENT DENIES MENTAL HEALTH HX. PATIENT REPORTS SUBSTANCE USE HX; PRIMARY DRUG OF CHOICE METH AND CANNABIS. PATIENT REPORTS METH AND CANNABIS USE FOR OVER 16 YRS. PATIENT REPORTS BEING SOBER FOR 6 MONTHS AND RECENTLY RELAPSED ABOUT 1 WEEK AGO. PATIENT REQUESTING GROUP HOME RESOURCES AND IS UNSURE IF HE WANTS TO RETURN TO CURRENT SOBER LIVING. SW PROVIDED PATIENT WITH SUBSTANCE USE RESOURCES AND EMERGENCY RESOURCES. SW ENCOURAGE PATIENT TO BEGIN CALLING GROUP HOME AND REHAB PROGRAMS TYPICALLY REQUIRE ASSESSMENTS AND SCREENING PROCESS. PATIENT IN UNDERSTAND AND ACCEPTED RESOURCES PROVIDED. SW INQUIRED ON ADDITIONAL RESOURCES NEEDED HOWEVER PATIENT DECLINED FURTHER RESOURCES.
[2022-03-30 16:00] VITALS: BP 108/72
--- NOTE | 2022-03-30 17:00 | NUR ---
BLOOD SUGAR CHECK GAVE INSULIN COVERAGE OF 2 UNIT FOR BLOOD SUGAR OF 178. GIVEN K-DUR FOR POTASSIUM LEVEL OF 3.2 TOLERATED WELL. REMINED AGAIN PATIENT THAT WE NEED TO COLLECT URINE SPECIMEN. CALL LIGHT WITH IN EASY REACH.
--- NOTE | 2022-03-30 18:53 | NUR ---
PATIENT ON BED RESTING NO DISTRESS NOTED.
--- NOTE | 2022-03-30 19:30 | NUR ---
GAVE REPORT TO HIDE EXAMINER NURSE FOR CONTINUITY OF CARE.
--- NOTE | 2022-03-30 19:30 | NUR ---
RECEIVED REPORT FROM DAY SHIFT NURSE FOR CONTINUITY OF CARE. PATIENT IS A&O X4. PATIENT IS ON ROOM AIR, BREATHING IS NORMAL WITH SYMMETRICAL RISE AND FALL OF CHEST. IV IS 20G IN RIGHT INDEX FINGER, RUNNING NS AT 80. BED IS IN LOWEST POSITION, WHEELS LOCKED, CALL LIGHT IN PLACE. WILL CONTINUE TO OBSERVE PATIENT.
[2022-03-30 20:00] VITALS: BP 128/89
--- NOTE | 2022-03-30 20:50 | NUR ---
OBTAINED VITALS. VITALS WERE: 97.4 TEMP, HR 73, BP 128/89, O2 98, RR 18. BS WAS 339, GAVE 8 UNITS OF HUMALOG AT 2042. PATIENT IS LYING IN BED TRYING TO SLEEP. BREATHING IS NORMAL WITH SYMMETRICAL RISE AND FALL OF CHEST WILL CONTINUE TO OBSERVE PATIENT.
[2022-03-30 21:39] LABS: BARBITURATE, URINE NEGATIVE ng/ml (NEG <=200); BENZODIAZEPINE, URINE NEGATIVE ng/mL (NEG <=200); CANNABINOID, URINE POSITIVE ng/mL (NEG <=50); COCAINE, URINE NEGATIVE ng/mL (NEG <=300); OPIATE, URINE NEGATIVE ng/mL (NEG <=2000); PHENCYCLIDINE SCREEN,URINE NEGATIVE ng/mL (NEG <=25)
--- NOTE | 2022-03-30 22:00 | NUR ---
LOOKED IN ON PATIENT. PATIENT IS SLEEPING. IVF IS RUNNING NS AT 80. BREATHING WAS NORMAL WITH SYMMETRICAL RISE AND FALL OF CHEST. BED IS IN LOWEST POSITION, WHEELS LOCKED, CALL LIGHT IN PLACE. WILL CONTINUE TO OBSERVE PATIENT.
--- NOTE | 2022-03-31 01:00 | NUR ---
WENT TO CHECK IN ON PATIENT. PATIENT WAS DIAPHORETIC, COLD AND CLAMMY. CHECKED BS, BS WAS 13. PATIENT IS AWARE. RECHECKED WITH ANOTHER MACHINE AND BS WAS 14. GAVE PATIENT APPLE JUICE, AND CONTACTED DR. SORTO (WHO WAS MEDICAL STAFF SERVICES COORDINATOR FOR DR STEINBERG). PENDING CALL BACK.
[2022-03-31] MEDS ORDERED: DEXT 5% /NACL 0.9% 1,000 ML IV SCH (01:15)
--- NOTE | 2022-03-31 01:30 | NUR ---
DOCTOR SORTO CALLED BACK AT 0120. ORDERED D5 1/2 NS AT 50/HR, AND TO CHECK PATIENT EACH HOUR FOR TWO HOURS.
--- NOTE | 2022-03-31 02:10 | NUR ---
ADMINISTERED D5 1/2NS @ 50ML/HR IVF. CHECKED BS. BS WAS 103. PATIENT SEEMS TO BE DOING BETTER. PATIENT HAD A PUDDING CUP. WILL CONTINUE TO OBSERVE PATIENT.
--- NOTE | 2022-03-31 03:00 | NUR ---
CHECKED PATIENT'S BS. BS WAS 245. PAGED DR. SORTO AGAIN. WAITING FOR CALL BACK. PATIENT IS DOING BETTER, NO LONGER DIAPHORETIC OR CLAMMY, BUT STILL COLD. WILL CONTINUE TO OBSERVE PATIENT.
--- NOTE | 2022-03-31 04:10 | NUR ---
DR SORTO CALLED BACK AND ORDERED NO FLUIDS FOR PATIENT, AND CONTINUE NORMAL SCHEDULED BLOOD SUGAR CHECKS. WENT TO ROOM AND TURNED OFF FLUIDS. PATIENT IS SLEEPING. WILL CONTINUE TO OBSERVE PATIENT.
--- NOTE | 2022-03-31 07:34 | NUR ---
GOT REPORT FROM THE NIGHT NURSE, PT SLEEPING NO SOB [id number]
--- NOTE | 2022-03-31 07:45 | NUR ---
GAVE REPORT TO DAY SHIFT NURSE JASON FOR CONTINUITY OF CARE. PATIENT IS STABLE.
[2022-03-31 07:51] LABS: ALBUMIN 3.2 g/dL (3.4-5.0); ANION GAP 13.6 (8-16); CARBON DIOXIDE 25.7 mmol/L (21-32); CREATININE 1.4 mg/dL (0.6-1.3); MAGNESIUM 2.3 mg/dL (1.8-2.4); POTASSIUM 5.3 mmol/L (3.5-5.1); TOTAL BILIRUBIN 0.2 mg/dL (0.0-1.0)
[2022-03-31] MEDS: BLOOD GLUCOSE MONITORING 1 DEV DEV FS SCH ×4 (07:58→21:00)
[2022-03-31] MEDS: INSULIN LISPRO SLIDING SCALE 100 UNITS/ML VIAL SUBQ PRN ×3 (07:59→23:38)
[2022-03-31 08:00] VITALS: BP 96/68
--- NOTE | 2022-03-31 08:00 | NUR ---
PATIENT'S BS WAS 358. GAVE PATIENT 10 UNITS. ENDORSED CARE OF PATIENT TO DAY SHIFT NURSE
[2022-03-31] MEDS: NACL 0.9% 1,000 ML IV SCH ×2 (08:20→23:33)
[2022-03-31] MEDS ORDERED: INSULIN LANTUS 100 UNITS/ML 10 ML VIAL SUBQ SCH (09:00)
[2022-03-31] MEDS: DOCUSATE SODIUM 100 MG GELCAP PO SCH (09:26)
[2022-03-31 16:00] VITALS: BP 95/61
[2022-03-31] MEDS ORDERED: DEXTROSE 50% 50 ML SYR IVP PRN (16:15)
--- NOTE | 2022-03-31 19:03 | NUR ---
ORDERED PICK LINE FOR PT. NOT ABLE TO PUSH D50 ORDERED. WITH JUICE AND PUDDING BLOOD JOSE 239 WITHIN 20 MINUETS SO DID NOT COVER WITH SLIDING SCALE NEED TO CHECK BS LATER. WILL ENDORSE TO DRY CLIPPER TENDER LITTLE6 Addendum: 03/31/22 at 1909 by Cherrie Marshall RN PT BS AT [address] AWARE OF IT. THE IV LINE IS TOO SMALL D50 CAN NOT GO THROUGH, ATTEMPT MADE TO INSERT 3 X BUT NO SUCCESS.LITTLE
[2022-03-31] MEDS: MORPHINE SULFATE 4 MG/ML SYR IVP PRN (23:35)
[2022-04-01] VITALS: BP 100/64
--- NOTE | 2022-04-01 02:13 | NUR ---
PATIENT AWAKE ALERT X4 SINUS ON MONITOR TEMP 97.8 RESTARTED IN ON LEFT F.A. 22 GA NS INFUSING AT 80 HOUR. PATIENT ASK FOR PAIN SHOT GIVEN MORPHINE 4 MG IVP 2335. PATIENT STATES PAIN IN BACK. 03/02. BLOOD SUGAR HS 209 GIVEN 4 UNITS S.Q. PATIENT WITH NO OTHER C/O.
[2022-04-01] MEDS: BLOOD GLUCOSE MONITORING 1 DEV DEV FS SCH ×2 (06:37→11:34)
[2022-04-01] MEDS: INSULIN LISPRO SLIDING SCALE 100 UNITS/ML VIAL SUBQ PRN (06:38)
[2022-04-01] MEDS: MORPHINE SULFATE 4 MG/ML SYR IVP PRN (06:55)
[2022-04-01 07:31] LABS: ALBUMIN 2.6 g/dL (3.4-5.0); CARBON DIOXIDE 23.7 mmol/L (21-32); CREATININE 1.2 mg/dL (0.6-1.3); POTASSIUM 4.7 mmol/L (3.5-5.1); TOTAL BILIRUBIN 0.1 mg/dL (0.0-1.0)
--- NOTE | 2022-04-01 07:45 | NUR ---
GOT REPORT FROM THE NIGHT NURSE, PT IS SLEEPING, NO SOB LOOKS COMFORTABLE. [id number]
[2022-04-01 08:00] VITALS: BP 99/61
[2022-04-01] MEDS: DOCUSATE SODIUM 100 MG GELCAP PO SCH (08:48)
[2022-04-01] MEDS ORDERED: INSULIN LANTUS 100 UNITS/ML 10 ML VIAL SUBQ SCH (09:00)
[2022-04-01] MEDS: NACL 0.9% 1,000 ML IV SCH (09:43)
[2022-04-01] MEDS ORDERED: INSU100I7 SQ (09:55)
[2022-04-01 10:31] VITALS: BP 108/74
[2022-04-01] MEDS ORDERED: INSULIN LISPRO 100 UNITS/ML VIAL SUBQ SCH (11:30)
--- NOTE | 2022-04-01 13:27 | NUR ---
PT DISCHARGED AND DISCHARGE INSTRUCTION IS GIVEN IV AND ID BAND REMOVED, WALKED PT OUT WITHOUT ANY DISCOMFORT.[id number]
== END 2022-04-01 13:20 | disposition home or self-care (01) | DRG 469 ==
LOC: MED 14:14 → MMU 18:54 → MTU 18:54 → OBSVTOIN 03-30 12:28
PROVIDERS: ADMIT Student in an Organized Health Care Education/Training Program; ATTEND Student in an Organized Health Care Education/Training Program
DX: N17.9 Acute kidney failure, unspecified (principal); E87.1 Hypo-osmolality and hyponatremia; E10.65 Type 1 diabetes mellitus with hyperglycemia; E86.0 Dehydration; D64.9 Anemia, unspecified; E87.6 Hypokalemia; E86.1 Hypovolemia; J45.909 Unspecified asthma, uncomplicated; K21.9 Gastro-esophageal reflux disease without esophagitis; Z20.822 Contact with and (suspected) exposure to COVID-19
CPT/HCPCS: 96360; 96361; 99285; G0378; 36415; 71045; 80048; 80053; 80305; 82009; 82948; 83735; 84484; 85025; 87081; 93005; J1644; J1815; J2270

== ENCOUNTER 2022-04-06 12:26 | Emergency (ER) | payer OTHER ==
[~2022-04-06] VITALS: Ht 165.1 cm; Wt 58.5 kg
[~2022-04-06 12:26] MED LIST changes: -PANT40EC PO
[2022-04-06 12:40] VITALS: BP 122/91
--- NOTE | 2022-04-06 12:40 | NUR ---
PT AMB TO BED 11
[2022-04-06] MEDS ORDERED: DEXTROSE 50% 50 ML SYR IVP ONE ×2 (12:48→12:50)
[2022-04-06 13:14] VITALS: BP 124/68
--- NOTE | 2022-04-06 13:34 | NUR ---
BLOOD DRAWN BY PHLEBOTOMY
[2022-04-06 14:08] LABS: ANION GAP 16.7 (8-16); CARBON DIOXIDE 22.7 mmol/L (21-32); CREATININE 1.2 mg/dL (0.6-1.3); POTASSIUM 4.4 mmol/L (3.5-5.1)
--- NOTE | 2022-04-06 14:35 | NUR ---
PT CALM AND SLEEPING
== END 2022-04-06 14:40 | disposition home or self-care (01) ==
LOC: MED 12:26
DX: E11.649 Type 2 diabetes mellitus with hypoglycemia without coma (principal); F17.210 Nicotine dependence, cigarettes, uncomplicated; Z71.6 Tobacco abuse counseling; J45.909 Unspecified asthma, uncomplicated; K21.9 Gastro-esophageal reflux disease without esophagitis; Z79.899 Other long term (current) drug therapy; Z79.4 Long term (current) use of insulin; Z88.0 Allergy status to penicillin; Z88.8 Allergy status to other drugs, medicaments and biological substances; Z91.011 Allergy to milk products
CPT/HCPCS: 36415; 80048; 81002; 82948; 96374; 99283

== ENCOUNTER 2022-04-21 11:05 | Emergency (ER) | payer OTHER ==
[~2022-04-21] VITALS: Ht 154.9 cm; Wt 59.0 kg
[2022-04-21 11:14] VITALS: BP 131/89
--- NOTE | 2022-04-21 11:20 | NUR ---
PT AMB TO BED 12
--- NOTE | 2022-04-21 12:04 | NUR ---
PT C/O ABDOMINAL PAIN WITH N/V X2 DAYS, STATES RECENT CHANGE IN INSULIN BY PCP. BS HAVE BEEN READING "HIGH" AT HOME. BS N 400S AT THIS TIME. IV INSERTED TO RIGHT THUMB #22GUAGE. PENDING ER MD BARRON.
[2022-04-21] MEDS ORDERED: NACL 0.9% 1,000 ML IV ONE ×2 (12:50→14:30)
[2022-04-21 14:12] LABS: BASOPHILS # (AUTO) 0.1 K/uL (0.00-0.22); BASOPHILS % (AUTO) 1.3 % (0.0-2.0); EOSINOPHILS # (AUTO) 0.2 K/uL (0-0.4); EOSINOPHILS % (AUTO) 3.1 % (0.0-4.0); HEMATOCRIT 30.7 % (36-52); HEMOGLOBIN 9.7 g/dL (12.0-18.0); LYMPHOCYTES # (AUTO) 2.1 K/uL (2.0-11.5); LYMPHOCYTES % (AUTO) 33.9 % (20.5-51.1); MEAN CORPUSCULAR HEMOGLOBIN 24 pg (27-31); MEAN CORPUSCULAR HGB CONC 32 g/dL (33-37); MEAN CORPUSCULAR VOLUME 74.6 fL (80-94); MONOCYTES # (AUTO) 0.4 K/uL (0.8-1.0); NEUTROPHILS # (AUTO) 3.4 K/uL (1.8-7.7); NEUTROPHILS % (AUTO) 55.7 % (42.2-75.2); PLATELET COUNT (AUTO) 307 K/uL (140-450); RED BLOOD CELL COUNT(AUTO) 4.12 MIL/uL (4.20-6.10); RED CELL DISTRIBUTION WIDTH 16.7 % (11.6-13.7); WHITE BLOOD COUNT (AUTO) 6.2 K/uL (4.8-10.8)
[2022-04-21 14:23] LABS: ALBUMIN 3.2 g/dL (3.4-5.0); ANION GAP 15.3 (8-16); ASPARTATE AMINOTRANSFERASE 20 U/L (15-37); CARBON DIOXIDE 23.7 mmol/L (21-32); CHLORIDE 102 mmol/L (98-107); CREATININE 1.3 mg/dL (0.6-1.3); GFR ARICAN-AMERICAN 82 mL/min (>90); GLUCOSE 365 mg/dL (74-106); LIPASE 211 U/L (73-393); SODIUM SERUM 136 mmol/L (136-145); TOTAL BILIRUBIN 0.3 mg/dL (0.0-1.0); UREA NITROGEN, BLOOD 23 mg/dL (7-18)
[2022-04-21 14:40] LABS: ACETONE, SERUM NEGATIVE (NEGATIVE)
[2022-04-21] MEDS ORDERED: INSULIN REGULAR, HUMAN 100 UNIT/ML VIAL SUBQ ONE (15:50)
[2022-04-21] MEDS ORDERED: KETOROLAC 30 MG/ML VIAL IVP ONE (16:00)
[2022-04-21 17:02] LABS: APPEARANCE,URINE CLEAR (CLEAR); BILIRUBIN,URINE NEGATIVE (NEGATIVE); BLOOD, URINE NEGATIVE (NEGATIVE); COLOR,URINE YELLOW (YELLOW); LEUKOCYTE ESTERASE ,URINE NEGATIVE (NEGATIVE); NITRITE, URINE NEGATIVE (NEGATIVE); UGLUCOSE 3+ (NEGATIVE)
[2022-04-21 17:58] VITALS: BP 106/55
== END 2022-04-21 17:59 | disposition home or self-care (01) ==
LOC: MED 11:05
DX: E10.65 Type 1 diabetes mellitus with hyperglycemia (principal); R07.0 Pain in throat; R19.7 Diarrhea, unspecified; R11.10 Vomiting, unspecified; F17.210 Nicotine dependence, cigarettes, uncomplicated
CPT/HCPCS: 36415; 36600; 80053; 81003; 82009; 82803; 82948; 83690; 84484; 85025; 93005; 94760; 96361; 96374; 96375; 99284; J1815; J1885; J7030; 96372

== ENCOUNTER 2022-05-23 12:15 | Inpatient (IN) | payer OTHER ==
[~2022-05-23] VITALS: Ht 172.7 cm; Wt 59.4 kg
[2022-05-23] VITALS (8 sets, daily range): BP systolic 96–133; BP diastolic 58–75
[2022-05-23] MEDS: BLOOD GLUCOSE MONITORING 1 DEV DEV FS SCH ×10 (00:35→22:35)
[2022-05-23] MEDS: POTASSIUM CHL 20 MEQ/ 1/2 NS 1,000 ML IV SCH ×2 (08:30→18:30)
--- NOTE | 2022-05-23 12:15 | NUR ---
PT BIBA TO ROOM 8
[2022-05-23] MEDS ORDERED: NACL 0.9% 1,000 ML IV SCH ×2 (12:25→14:35)
--- NOTE | 2022-05-23 12:45 | NUR ---
31YO MALE PT BIBA FROM [facility] C/O [place] 05/02 EPIGASTRIC PAIN AND V/D XYESTERDAY. PT UNABLE TO RECALL EPISODES "TOO MANY TOO COUNT" AND NOTES DARK EMESIS. ABDOMEN FLAT, TENDER , ACTIVE X4. UPON ARRIVAL BS TOO HIGH FOR READING. PT STATES BEING COMPLIANT W/ INSULIN. DENIES DIARRHEA, FEVER, CHILLS OR SOB.SKIN WARM AND DRY. PT WAS RECENTLY ADMITTED FOR DKA AND DISCHARGED 3 DAYS AGO. PT AAOX4, IN VISIBLE DISTRESS AND RESTLESS GUARDING ABDOMEN. ON FIRE PROTECTION INSPECTOR, BED AT LOWEST POSITION, BED RAILS UPX2. HX:ASTHMA, GERD, DM ALLERGIES: PENICILLIN, REGLAN
--- NOTE | 2022-05-23 12:46 | NUR ---
Patient BIBA to bed 7. Addendum: 05/23/22 at 1358 by JORGE Patient BIBA to bed 8.
[2022-05-23 13:16] LABS: BASOPHILS # (AUTO) 0.1 K/uL (0.00-0.22); BASOPHILS % (AUTO) 0.3 % (0.0-2.0); HEMATOCRIT 40.4 % (36-52); HEMOGLOBIN 12.9 g/dL (12.0-18.0); LYMPHOCYTES # (AUTO) 1.2 K/uL (2.0-11.5); LYMPHOCYTES % (AUTO) 6.6 % (20.5-51.1); MEAN CORPUSCULAR HEMOGLOBIN 24 pg (27-31); MEAN CORPUSCULAR HGB CONC 32 g/dL (33-37); MEAN CORPUSCULAR VOLUME 73.4 fL (80-94); MONOCYTES # (AUTO) 0.9 K/uL (0.8-1.0); MONOCYTES % (AUTO) 4.6 % (1.7-9.3); NEUTROPHILS # (AUTO) 16.4 K/uL (1.8-7.7); NEUTROPHILS % (AUTO) 88.5 % (42.2-75.2); PLATELET COUNT (AUTO) 433 K/uL (140-450); WHITE BLOOD COUNT (AUTO) 18.5 K/uL (4.8-10.8)
[2022-05-23] MEDS ORDERED: MORPHINE SULFATE 4 MG/ML SYR IVP ONE (13:45)
[2022-05-23] MEDS ORDERED: ONDANSETRON 4 MG/2 ML VIAL IVP ONE (13:45)
[2022-05-23 13:47] LABS: ALBUMIN 4.7 g/dL (3.4-5.0); ANION GAP 30.7 (8-16); CARBON DIOXIDE 24.2 mmol/L (21-32); CREATININE 3.7 mg/dL (0.6-1.3); POTASSIUM 3.9 mmol/L (3.5-5.1); TOTAL BILIRUBIN 0.6 mg/dL (0.0-1.0)
[2022-05-23] MEDS ORDERED: NACL 0.9% 1,000 ML IV ONE (14:15)
[2022-05-23] MEDS ORDERED: INSULIN REGULAR, HUMAN 100 UNIT in NACL 0.9% 100 ML IV ONE ×2 (14:20)
[2022-05-23] MEDS ORDERED: DEXTROSE 50% 50 ML SYR IVP PRN (14:35)
[2022-05-23] MEDS ORDERED: ACETAMINOPHEN 325 MG TAB PO PRN (14:35)
[2022-05-23] MEDS ORDERED: LORazepam 1 MG TAB PO PRN (14:35)
[2022-05-23] MEDS ORDERED: INSULIN REGULAR, HUMAN 100 UNIT in NACL 0.9% 100 ML IV SCH ×2 (14:35)
[2022-05-23] MEDS ORDERED: ONDANSETRON 4 MG/2 ML VIAL IVP PRN (14:35)
[2022-05-23] MEDS ORDERED: HYDROcodone/APAP 5/325 MG 1 TAB TAB PO PRN (14:35)
[2022-05-23] MEDS ORDERED: INSULIN REGULAR, HUMAN 100 UNIT/ML VIAL IVP SCH (14:55)
[2022-05-23] MEDS: PANTOPRAZOLE 40 MG INJ VIAL IVP SCH ×2 (15:13→20:23)
--- NOTE | 2022-05-23 15:19 | NUR ---
Patient will be admitted to care of QUANG AZAR. Admited to ICU. Will go to rooM 3. Belongings list completed. Report to BARBARA MURDOCK.
--- NOTE | 2022-05-23 15:36 | NUR ---
CALLED DR. RONEY DEL RIO AT [facility] [phone] TO REVIEW ABG ORDER PATIENT DX: DKA; ANG/OFFICE TO PAGE FOREMENTIONED MD; PATIENT INFORMATION AND CALL BACK NUMBER GIVEN
[2022-05-23] MEDS: HYDROmorphone 1 MG/ML AMP IVP PRN ×2 (15:44→20:15)
--- NOTE | 2022-05-23 15:48 | NUR ---
CALL BACK FROM DR. RONEY DEL RIO; REFERENCE NOTE AT 1536; LUISITO DEL RIO: CANCEL ABG; PASTE UP ARTIST HAYDEE TO ORDER VBG TIMED AT 1700 Addendum: 05/23/22 at 1558 by Bud Michelle RT LUISITO = MIYA
--- NOTE | 2022-05-23 16:00 | NUR ---
LAB CALL GLUCOSE 650. PT. ON INSULIN DRIP. LACTIC ACID 2.7.
--- NOTE | 2022-05-23 16:00 | NUR ---
VANCOMYCIN TROUGH 17.8 PHARMACY ZOHREH NOTIFIED SAID TO CONTINUE SAME DOSE. Addendum: 05/23/22 at 1638 by Ashtyn Trinidad RN THIS NOTE IS NOT BELONG TO THIS PATIENT.
[2022-05-23 16:16] LABS: ANION GAP 29.1 (8-16); CARBON DIOXIDE 19.2 mmol/L (21-32); CREATININE 3.4 mg/dL (0.6-1.3); POTASSIUM 3.3 mmol/L (3.5-5.1)
--- NOTE | 2022-05-23 16:20 | NUR ---
DR. SANCHES (RENAL) MD JOSÉ ORDERED EARLIER FOR BETA HYDROXYBUTYRATE ( TO DETERMINE IF PATIENT IS DKA VERSUS HYPERGLYCEMIA), SERUM OSMOLALITY, AND URINE DRUG SCREEN. GOAL OF SODIUM BELOW 145, WILL CALCULATE CORRECTED SODIUM & AND IF NOT BELOW 145, 0.9% NORMAL SALINE NEEDS TO BE CHANGED TO HALF NORMAL SALINE & HE WILL ORDER IT. Addendum: 05/23/22 at 1933 by Agency 08 RN RN [address] SANCHES CAME BACK, ORDERED TO STOP THE NORMAL SALINE 0.9% ( PER DKA PROTOCOL), START 0.45% NS WITH 20 mEq KCl 1000 MLS AT 150 MLS/HR. AND GIVE ANOTHER 500 MLS. NS FOR LOW URINE OUTPUT. 1814 HRS. CALLED UP MD SANCHES CLARIFIED ORDER OF LOW URINE OUTPUT FOR SECOND BAG OF NS [address] SANCHES ORDERED TO GIVE ANOTHER 500 MLS. ADDITIONAL NS FOR A TOTAL OF 1 LITER NS FOR NO URINE OUTPUT. PENDING IS URINE DRUG SCREEN SPECIMEN.
[2022-05-23] MEDS ORDERED: POTASSIUM CHLORIDE 40 MEQ in NACL 0.45% 1,000 ML IV SCH (17:00)
--- NOTE | 2022-05-23 17:05 | NUR ---
DR. RAN RAND ROUNDING IN ICU; VBG ORDERED FOR 1700 NOT REQUIRED; OKAY FOR NET DEVELOPER CONSULTANT TO CANCEL
[2022-05-23] MEDS ORDERED: POTASSIUM CHLORIDE 10 MEQ TABER PO SCH ×2 (17:07→21:00)
[2022-05-23 17:28] LABS: MAGNESIUM 2.6 mg/dL (1.8-2.4); PHOSPHORUS 6.5 mg/dL (2.5-4.9)
[2022-05-23] MEDS ORDERED: NACL 0.9% 500 ML IV SCH ×2 (17:50→18:05)
[2022-05-23] MEDS: ZOLPIDEM 5 MG TAB PO PRN (17:59)
--- NOTE | 2022-05-23 19:40 | NUR ---
Received report from OUT GOING RN AND PT IS AWAKE ALERT AND ORIENTED X4. HE'S RECEIVING INSULIN VIA GTT WITH A BLOOD SUGAR CHECK DUE NOW.. OBTAINED AT 1999 IT'S 156.INSULIN GTT AT .01 AND 1/2NSAT 150CC. THE PT IS REQUESTING PAIN MED FOR ABD PAIN 04/02 DILAUDID GIVEN. 2034 BLOOD SUGAR 67. INSULIN OFF AND D50 PUSHED [address] P[address] ARAUZ TO REPORT WAITING FOR CALL BACK. ALSO LAB CALLED AT 2099 TO REPORT CRITICAL BUN 65 TO BE REPORTED TO THE MD.
--- NOTE | 2022-05-23 20:01 | NUR ---
REPORT GIVEN TO NIGHT COLLETTE PARK. PT. ON DKA INSULIN PROTOCOL AT 5.5 UNITS/HR (55 KG), BLOOD SUGAR Q1 HR., IVF N/S 0.9% 200 MLS/HR DKA PROTOCOL DISCONTINUED BY MD SANCHES (RENAL) AND STARTED ON MAINTENANCE 0.45% WITH 20 MEQ KCL AT 150 MLS/HR. GIVEN K-DUR 40 MEQ PO & ANOTHER 40 MEQ K-DUR AT 2100 HRS. NO URINE OUTPUT, GIVEN TOTAL 1 LITER NS & FOR URINE DRUG SCREEN.
[2022-05-23 20:35] LABS: CARBON DIOXIDE 30.8 mmol/L (21-32); POTASSIUM 3.8 mmol/L (3.5-5.1)
[2022-05-23 20:47] LABS: MAGNESIUM 2.6 mg/dL (1.8-2.4); PHOSPHORUS 6.4 mg/dL (2.5-4.9)
[2022-05-23 21:51] LABS: APPEARANCE,URINE CLEAR (CLEAR); BILIRUBIN,URINE 1+ (NEGATIVE); BLOOD, URINE NEGATIVE (NEGATIVE); COLOR,URINE YELLOW (YELLOW); LEUKOCYTE ESTERASE ,URINE NEGATIVE (NEGATIVE); NITRITE, URINE NEGATIVE (NEGATIVE); PH,URINE 5.5 (5.0-9.0); UGLUCOSE 3+ (NEGATIVE)
--- NOTE | 2022-05-23 22:20 | NUR ---
DR. ARAUZ RETUIRNED CALL AND ORDERED THE INSULIN GTT TO CONTINUE AND TO CHANGE THE IV TO D5 1/2NS AT 150CC/PER HOUR . HE ONLY ADDRESSED THE BUN/CREATININE BY T6HE AMT OF URINE THE PT WAS PUTTING OUT .. PT ONLY HAD 200 CC OUT
[2022-05-23 22:27] LABS: BARBITURATE, URINE NEGATIVE ng/ml (NEG <=200); BENZODIAZEPINE, URINE NEGATIVE ng/mL (NEG <=200); CANNABINOID, URINE POSITIVE ng/mL (NEG <=50); COCAINE, URINE NEGATIVE ng/mL (NEG <=300); OPIATE, URINE POSITIVE ng/mL (NEG <=2000); PHENCYCLIDINE SCREEN,URINE NEGATIVE ng/mL (NEG <=25)
[2022-05-23] MEDS: DEXT 5% / NACL 0.45% 1,000 ML IV SCH (22:30)
[2022-05-24] VITALS (11 sets, daily range): BP systolic 95–157; BP diastolic 61–108
[2022-05-24] MEDS: BLOOD GLUCOSE MONITORING 1 DEV DEV FS SCH ×11 (00:35→20:48)
[2022-05-24 00:43] LABS: ANION GAP 15.5 (8-16); CARBON DIOXIDE 28.7 mmol/L (21-32); CREATININE 2.5 mg/dL (0.6-1.3); POTASSIUM 4.2 mmol/L (3.5-5.1)
[2022-05-24] MEDS: HYDROmorphone 1 MG/ML AMP IVP PRN ×3 (01:05→18:34)
[2022-05-24 01:12] LABS: MAGNESIUM 2.5 mg/dL (1.8-2.4); PHOSPHORUS 5.4 mg/dL (2.5-4.9)
--- NOTE | 2022-05-24 02:12 | NUR ---
PT REFUSED AM CARE; SYATES i WANT TO SLEEP.
[2022-05-24] MEDS: DEXT 5% / NACL 0.45% 1,000 ML IV SCH ×3 (04:55→18:31)
[2022-05-24 05:28] LABS: ANION GAP 13.5 (8-16); CARBON DIOXIDE 29.9 mmol/L (21-32); CREATININE 2.1 mg/dL (0.6-1.3); POTASSIUM 4.4 mmol/L (3.5-5.1)
[2022-05-24 05:32] LABS: MAGNESIUM 2.4 mg/dL (1.8-2.4); PHOSPHORUS 4.2 mg/dL (2.5-4.9)
[2022-05-24] MEDS: POTASSIUM CHL 20 MEQ/ 1/2 NS 1,000 ML IV SCH ×2 (05:49→13:00)
[2022-05-24 05:58] LABS: BASOPHILS # (AUTO) 0.1 K/uL (0.00-0.22); BASOPHILS % (AUTO) 0.4 % (0.0-2.0); EOSINOPHILS # (AUTO) 0.1 K/uL (0-0.4); EOSINOPHILS % (AUTO) 0.5 % (0.0-4.0); HEMATOCRIT 31.8 % (36-52); HEMOGLOBIN 10.3 g/dL (12.0-18.0); LYMPHOCYTES # (AUTO) 2.2 K/uL (2.0-11.5); LYMPHOCYTES % (AUTO) 10.7 % (20.5-51.1); MEAN CORPUSCULAR HEMOGLOBIN 24 pg (27-31); MEAN CORPUSCULAR HGB CONC 33 g/dL (33-37); MEAN CORPUSCULAR VOLUME 72.3 fL (80-94); MONOCYTES # (AUTO) 1.3 K/uL (0.8-1.0); MONOCYTES % (AUTO) 6.6 % (1.7-9.3); NEUTROPHILS # (AUTO) 16.6 K/uL (1.8-7.7); NEUTROPHILS % (AUTO) 81.8 % (42.2-75.2); PLATELET COUNT (AUTO) 335 K/uL (140-450); RED CELL DISTRIBUTION WIDTH 16.2 % (11.6-13.7); WHITE BLOOD COUNT (AUTO) 20.2 K/uL (4.8-10.8)
[2022-05-24] MEDS: DOCUSATE SODIUM 100 MG GELCAP PO SCH (08:50)
[2022-05-24] MEDS: PANTOPRAZOLE 40 MG INJ VIAL IVP SCH ×2 (09:00→20:49)
--- NOTE | 2022-05-24 10:21 | NUR ---
PATIENT HAS BEEN SCREENED AND CATEGORIZED HIGH NUTRITION RISK. PATIENT WILL BE SEEN WITHIN 1-2 DAYS OF ADMISSION. 05/23/22-05/25/22 REVIEW[address] BY ALEX HYDE [address]
[2022-05-24] MEDS ORDERED: diazePAM 2 MG TAB PO PRN (13:00)
--- NOTE | 2022-05-24 14:00 | NUR ---
DISCHARGE PLANNING PATIENT IS A 31-YEAR-OLD MALE ADMITTED AT THE [facility]/ED ON 05/23/2022 DUE TO COMPLAINTS OF GENERALIZED WEAKNESS, ABDOMINAL PAIN ASSOCIATED WITH NAUSEA AND VOMITING WELL UNCONTROLLED BLOOD SUGARS. PATIENT REPORTS BEING ON INSULIN AND COMPLIANT WITH MEDICATIONS. PATIENT HAS HISTORY OF TYPE 1 DIABETES MELLITUS, ASTHMA, SUBSTANCE ABUSE, AND UNSPECIFIED CHRONIC KIDNEY DISEASE. SW MET WITH PATIENT AT BEDSIDE TO DISCUSS AND GATHER PATIENT'S COLLATERAL INFORMATION AND GET UPDATED INFORMATION OF PATIENT SINCE HE IS A RE-ADMIT FROM 05/18/2022. PATIENT REPORTED NOT LIVING AT [facility] FOR ANYMORE DUE TO RELAPSING AFTER BEEN SOBER FOR ABOUT 7 MONTHS. PATIENT REPORTED THAT HE WILL NOT BE ABLE TO RETURN TO THE SAME SOBER LIVING UNLESS THEY WILL ACCEPT HIM AGAIN BY THE APPLICATIONS DEVELOPMENT CONSULTANT HOWEVER HE IS UNSURE. PATIENT STATED HAVING LIMITED FAMILY SUPPORT, THE ONE HE ALWAYS GETS SUPPORT IS FROM HIS MOTHER ZARINA ASH (TINA) WHO IS PATIENT'S EMERGENCY CONTACT AND MEDICAL DECISION MAKER. PATIENT STATED NOT HAVING ADVANCE DIRECTIVES AND WAS NOT INTERESTED ON GETTING INF. FORMS PROVIDED BY YOSEPH. PATIENT REPORTED BEEN ACTIVE, INDEPENDENT, AND NOT HAVING OR NEEDING ANY DME. PATIENT REPORTED NOT HAVING ANY ISSUES GETTING HIS MEDICATIONS FROM THE [facility] IN [facility]. YOSEPH EXPLAINED TO PATIENT THE NEED TO MAKE A FOLLOW UP APPOINTMENT WITH HIS PCP USHA SORTO WITHIN 5-7 DAYS AFTER HIS DC FROM [facility]. PATIENT DID NOT AGREED FOR SW TO MAKE HIS FOLLOW UP APPOINTMENT; WITH PRIMARY DOCTOR AFTER HE DISCHARGES FROM [facility]. PATIENT STATED THAT HE IS NOT SURE WHO WILL BE ASSISTING HIM WITH TRANSPORTATION WHEN IS TIME FOR DISCHARGE HOWEVER; HE WILL NEED A BUS PASS OR A RIDE TO MAY BE ONE OF SHELTERS IN THE LIST OR RESOURCES OR TO A SUBSTANCE ABUSE REHABS LIST OR RESOURCES; SW PROVIDED FOR HIM DURING MEETING. YOSEPH DISCUSS WITH PATIENT AGAIN THE IMPORTANCE OF MAKING A FOLLOW UP APPOINTMENT AND ASKED PATIENT IF A FOLLOW UP APPOINTMENT WITH HIS PCP FOR WHEN HE IS READY AND STABLE FOR DISCHARGE FROM [facility]. PATIENT DECLINED AGAIN AND REPORTED THAT HE WILL MAKE HIS OWN APPOINTMENT THIS TIME WITH HIS PCP; SINCE HE HAD AN APPOINTMENT SCHEDULED BY [facility] AND MISSED IT DUE TO COMING BACK TO [facility]. PATIENT REPORTED THAT HIS LAST VISIT WITH PCP WAS ON FEBRUARY 2022. SW WILL FOLLOW UP WITH PATIENT NEEDED. Addendum: 05/25/22 at 1618 by Jose Juan Carbajal SS YOSEPH OUTREACHED TO PATIENTS PCP OFFICE AT [phone]. YOSEPH SPOKE WITH EFRAÍN FUENTEST WAS SCHEDULED FOR 05/26/22 AT 2:00PM WITH DR. DEL RIO, AT [address] [facility] [place] [address]. PATIENT WAS PROVIDED WITH APPT CARD WITH APPT DETAILS THAT INCLUDED; DATE, TIME, ADDRESS, PHONE NUMBER AND DR. PATIENT ACCEPTED. PT NOTIFIED TO CALL OFFICE IF UNABLE TO MAKE IT TO APPT, PT AGREED.
--- NOTE | 2022-05-24 16:05 | NUR ---
05/24/22 RD INITIAL ASSESSMENT COMPLETED PLEASE REFER TO NUTRITION ASSESSMENT UNDER CARE ACTIVITY FOR ESTIMATED NUTRITIONAL NEEDS. 1. [facility]UE [facility]. 2. OFFERED ORAL SUPPLEMENTS AND DIABETES EDUCATION BUT PATIENT DECLINED. 3. RD TO FOLLOW-UP 3-5 DAYS, MODERATE RISK REVIEWED BY ALEX HYDE RD
--- NOTE | 2022-05-24 17:30 | NUR ---
Report given to process control tech Via phone. Endorsed that last BS is 244 and was covered with 7U of regular insulin. Endorsed that the pt produced 100ml of during during shift. Pt sts he does not have pain at this time. Will transport Pt to tele
--- NOTE | 2022-05-24 18:00 | NUR ---
PT ARRIVED FROM ICU VIA WHEELCHAIR. PT V/S : TEMP 98.3, P 91, BP 134/89, O2 99%, RR 18. PT AOX4 ON ROOM AIR. PICC LINE ON ARI AND IV 20G ON RIGHT HAND. PT ABLE TO VERBALIZE NEEDS. CALL LIGHT WITHIN REACH. ALL SAFETY MEASURES IN PLACE.
--- NOTE | 2022-05-24 18:34 | NUR ---
PT COMPLAINING OF ABDOMEN PAIN 04/02. RN DU ADMINISTERED IV MED FOR PAIN RELIEF.
--- NOTE | 2022-05-24 18:57 | NUR ---
NOTED PATIENT HAS ORDER FOR 1/2 NS 20 MEQ AT 150 ML EVERY 6 HOURS ROUTINELY BUT PT. POTASSIUM LEVEL IS 4.[address] DEL RIO WAITING FOR HIS RESPONSE.
--- NOTE | 2022-05-24 19:10 | NUR ---
ENDORSED PT TO NATURAL RESOURCES ENGINEER NURSE FOR CONTINUITY OF CARE. PT IN STABLE CONDITION.
--- NOTE | 2022-05-24 19:20 | NUR ---
RECEIVED PT FROM AM NURSE FOR CONTINUITY OF CARE. PT IS STABLE
[2022-05-24] MEDS: NACL 0.45% 1,000 ML IV SCH (20:28)
[2022-05-24] MEDS: ZOLPIDEM 5 MG TAB PO PRN (20:50)
--- NOTE | 2022-05-25 01:00 | NUR ---
PATIENT ASLEEP, ALL SAFETY MEASURES IN PLACE, CALL LIGHT WITHIN EASY REACH, NO DISTRES NOTED
[2022-05-25] MEDS: HYDROmorphone 1 MG/ML AMP IVP PRN ×2 (02:14→08:36)
[2022-05-25] MEDS: NACL 0.45% 1,000 ML IV SCH (05:47)
[2022-05-25] MEDS: BLOOD GLUCOSE MONITORING 1 DEV DEV FS SCH ×4 (06:37→20:48)
--- NOTE | 2022-05-25 07:15 | NUR ---
RECEIVED PT FROM SUPERVISOR PLASTERING NURSE FOR CONTINUITY OF CARE. PT IN BED ASLEEP. EVEN RISE AND FALL OF CHEST. RESPIRATIONS EVEN AND UNLABORED. NO DISTRESS NOTED. CALL LIGHT WITHIN REACH.
--- NOTE | 2022-05-25 08:00 | NUR ---
REVIEWED AND DISCUSSED PT PLAN OF CARE WITH JAZMIN LOZOYA. PT IN STABLE CONDITION.
[2022-05-25] MEDS: PANTOPRAZOLE 40 MG INJ VIAL IVP SCH (08:36)
--- NOTE | 2022-05-25 08:36 | NUR ---
ADMINISTERED PRN DILAUDID FOR ABDOMINAL PAIN /, WELL PROTONIX SCHEDULED.
[2022-05-25] MEDS: INSULIN LANTUS 100 UNITS/ML 10 ML VIAL SUBQ SCH (08:45)
[2022-05-25] MEDS: DOCUSATE SODIUM 100 MG GELCAP PO SCH (08:56)
--- NOTE | 2022-05-25 08:57 | NUR ---
ADMINISTERED SCHEDULED INSULIN. PT REFUSED TO TAKE COLACE. PT STATED "I DONT NEED THAT". PT WAS EDUCATED ON RISKS AND BENEFITS. PT VERBALIZED UNDERSTANDING.
[2022-05-25] MEDS ORDERED: INSULIN LANTUS 100 UNITS/ML 10 ML VIAL SUBQ SCH (09:00)
--- NOTE | 2022-05-25 11:30 | NUR ---
BLOOD SUGAR CHECK NO INSULIN NEEDED FOR BLOOD SUGAR 147.
--- NOTE | 2022-05-25 11:34 | NUR ---
DC PLANNING: RECEIVED A CALL FROM [facility] SPOKE WITH LOVE NOTIFIED HER THAT PATIENT HAS A DC ORDER AND NEEDS TO BE PLACED TO HOUSING FOR F/U MD, MEDICATION AND DIABETIC TEACHING. PER DAVIAN SHE NEEDS ACCEPTING HOME HEALTH AND A MONTH SUPPLY OF MEDS. PER DR DEL RIO PATIENT RECEIVED HIS MEDS 2 WEEKS AGO AND IF HE DOESN'T HAVE IT WILL ORDER TO HIS PHARMACY. WILL CLARIFY WITH PATIENT AND AWAITING FOR LOVE TO CALL BACK. CM TO FOLLOW Addendum: 05/26/22 at 1140 by Marilyn Leyva RN DC PLANNING: FAXED THE HOME HEALTH TO [facility]. CM TO FOLLOW Addendum: 05/26/22 at 1725 by Marilyn Leyva RN DC PLANNING: NOTIFIED [facility] THAT [facility] IS ACCEPTED PATIENT. RECEIVED A CALL FROM [facility] [phone] STILL WORKING ON IT. CM TO FOLLOW Addendum: 05/27/22 at 1707 by Marilyn Leyva RN DC PLANNING: PATIENT GOT ACCEPTED AT [facility] GOING TO [address] [place] [phone] # TO GIVE REPORT [phone] PICKED UP THE MEDS FROM [facility] AND HANDED TO THE PATIENT. ARRANGED TRANSPORT WITH [facility] ETA WILL BE 190 NOTIFIED MASOUD MURDOCK
[2022-05-25] MEDS ORDERED: ALUMINUM HYD/MAG/SIMETHICONE 30 ML UDC PO PRN (12:40)
--- NOTE | 2022-05-25 12:53 | NUR ---
SEEN AND EXAMINED BY DR. DEL RIO AND SPOKE TO HIM REGARDING THE PLAN OF CARE AND NEW ORDER FOR HIS COMPLAIN STOMACH PAIN EVERY TIME HE EATS.
[2022-05-25] MEDS: SUCRALFATE 1 GM TAB PO SCH ×3 (13:13→20:37)
--- NOTE | 2022-05-25 13:14 | NUR ---
GIVEN SUCRALFATE NEW ORDER FOR PATIENT COMPLAIN OF ABDOMINAL PAIN EVERY TIME HE EATS.
--- NOTE | 2022-05-25 16:31 | NUR ---
PT INSULIN 130, NO INSULIN COVERAGE NEEDED PER SLIDING SCALE.
--- NOTE | 2022-05-25 17:28 | NUR ---
ADMINISTER SCHEDULED SUCRALFATE. PT TOLERATED WELL, STATED HE IS FEELING MUCH BETTER.
--- NOTE | 2022-05-25 19:10 | NUR ---
ENDORSED PT TO ENTRY WRITER NURSE FOR CONTINUITY OF CARE. ALL NEEDS MET DURING SHIFT. PT IN STABLE CONDITION.
--- NOTE | 2022-05-25 19:30 | NUR ---
RECEIVED REPORT FROM DAY SHIFT NURSE DEVORA FOR CONTINUITY OF CARE. PATIENT IS A&O X4. PATIENT IS ON ROOM AIR, BREATHING IS NORMAL WITH SYMMETRICAL RISE AND FALL OF CHEST. PATIENT'S IV IS A DOUBLE LUMEN PICC LINE IN THE LEFT AC; NO FLUIDS RUNNING AT THIS TIME (SALINE LOCKED). PATIENT IS AWAKE; SITTING UP IN BED, IN SEMI-FOWLERS POSITION, WITH LIGHTS OFF. BED IS IN LOWEST POSITION, WHEELS LOCKED, CALL LIGHT IN PLACE. WILL CONTINUE TO OBSERVE PATIENT.
[2022-05-25 20:00] VITALS: BP 106/77
[2022-05-25] MEDS: ZOLPIDEM 5 MG TAB PO PRN (20:51)
--- NOTE | 2022-05-25 20:55 | NUR ---
WENT INTO ROOM TO OBTAIN 2000 VITALS AND ADMINISTER 2100 MEDICATIONS. PATIENT WAS SLEEPING LYING SUPINE AND ON LEFT SIDE. WOKE PATIENT UP AND OBTAINED 2000 VITALS; VITALS WERE: BP 106/77, HR 80, RR 18, O2 100, TEMP 98.0. ADMINISTERED 2100 MEDICATION. PATIENT TOLERATED MEDICATION WELL WITH NO DIFFICULTIES. BS WAS 113; NO COVERAGE WAS NEEDED. PATIENT REQUESTED MEDICATION FOR SLEEP, CHECKED PATIENT'S CHART, AMBIEN WAS APPROPRIATE TO ADMINISTER. GAVE PATIENT AMBIEN FOR SLEEP. PATIENT THANKED ME, AND LAID DOWN TO GO BACK TO SLEEP. PATIENT WAS COOPERATIVE DURING MEDICATION ADMINISTRATION AND VITALS. BREATHING WAS NORMAL WITH SYMMETRICAL RISE AND FALL OF CHEST. WILL CONTINUE TO OBSERVE PATIENT.
--- NOTE | 2022-05-25 22:45 | NUR ---
LOOKED IN ON PATIENT. PATIENT WAS SLEEPING, LYING SUPINE WITH BLANKETS PULLED UP PAST HIS SHOULDERS. PATIENT'S BREATHING WAS NORMAL WITH SYMMETRICAL RISE AND FALL OF CHEST. NO IV FLUIDS RUNNING AT THIS TIME. WILL CONTINUE TO OBSERVE PATIENT.
--- NOTE | 2022-05-26 00:20 | NUR ---
LOOKED IN ON PATIENT. PATIENT WAS SLEEPING LYING SUPINE ON LEFT SIDE. BREATHING WAS NORMAL WITH SYMMETRICAL RISE AND FALL OF CHEST. EMPTIED 1000 ML OF URINE FROM URINAL. BED IS IN LOWEST POSITION WITH WHEELS LOCKED AND CALL LIGHT IN PLACE. WILL CONTINUE TO OBSERVE PATIENT.
--- NOTE | 2022-05-26 02:30 | NUR ---
LOOKED IN ON PATIENT. PATIENT WAS SLEEPING, LYING SUPINE. BREATHING WAS NORMAL WITH SYMMETRICAL RISE AND FALL OF CHEST. WILL CONTINUE TO OBSERVE PATIENT.
[2022-05-26 04:00] VITALS: BP 109/77
--- NOTE | 2022-05-26 04:50 | NUR ---
ENTERED ROOM TO OBTAIN VITALS, PATIENT WAS SLEEPING SUPINE. WOKE PATIENT UP TO OBTAIN VITALS. OBTAINED 0400 VITALS; VITALS WERE: TEMP 97.0, BP 109/77, HR 79, O2 98, RR 18. PATIENT WAS COOPERATIVE. WENT BACK TO SLEEP AFTER OBTAINING VITALS. WILL CONTINUE TO OBSERVE PATIENT.
--- NOTE | 2022-05-26 07:30 | NUR ---
ENDORSED TO DAY SHIFT NURSE FERNANDO FOR CONTINUITY OF CARE. PATIENT IS STABLE.
[2022-05-26 08:00] VITALS: BP 113/69
[2022-05-26] MEDS: BLOOD GLUCOSE MONITORING 1 DEV DEV FS SCH ×4 (08:10→20:33)
--- NOTE | 2022-05-26 08:10 | NUR ---
OBTAINED PATIENT BS; BS WAS 123, NO COVERAGE WAS NEEDED. PATIENT WAS SLEEPING, WOKE PATIENT UP TO OBTAIN BS. PATIENT STATED HE WAS GOING TO GO BACK TO SLEEP. HAVE ENDORSED CONTINUITY OF CARE TO DAY SHIFT NURSE FERNANDO.
[2022-05-26] MEDS: DOCUSATE SODIUM 100 MG GELCAP PO SCH (08:50)
[2022-05-26] MEDS: SUCRALFATE 1 GM TAB PO SCH ×4 (08:50→20:25)
[2022-05-26] MEDS: PANTOPRAZOLE 40 MG TABEC PO SCH (08:50)
[2022-05-26] MEDS: INSULIN LANTUS 100 UNITS/ML 10 ML VIAL SUBQ SCH (08:52)
--- NOTE | 2022-05-26 13:00 | NUR ---
DISCHARGE PLANNING SW CALL [facility] PROGRAM AT TO DISCUSS AND GET AN UPDATE ON PATIENT SEARCH FOR HOUSING PLACEMENT SINCE PATIENT HAS A DISCHARGE ORDER FOR TODAY. SPOKE TO ANALILIA WHO STATED THAT PATIENT HOUSING STILL PENDING AND IN PROGRESS, REPORTED SEARCH FOR HOUSING THAT SOME TIMES IT CAN TAKE UP TO 3 DAYS. PER ANALILIA SHE ALSO NEEDED HOME HEALTH INFORMATION AND CONTACT NUMBER TO GET VERIFICATION OF ACCEPTANCE. YOSEPH AND SENIOR PLANNER INFORMED ANALILIA THAT THE HOME HEALTH COMPANY ACCEPTING PATIENT WILL BE [employer] AND PROVIDED CONTACT INFORMATION. PER ANALILIA SHE WILL BE CONTACTING THE HOME HEALTH COMPANY TO VERIFY SERVICES ACCEPTANCE FOR PATIENT AND THEN [facility] STAFF WILL CALL BACK SW/CM TO PROVIDE INFORMATION UPDATES ABOUT PATIENT HOUSING ACCEPTANCE AND DETAIL INFORMATION ABOUT WHERE PATIENT WILL BE PLACED.SW/CM AGREED AND WILL FOLLOW UP NEEDED. SW MEET WITH PATIENT TO DISCUSS ABOUT REFERRAL TO [facility] WELL DISCUSSING MEDICATIONS. SW EXPLAINED TO PATIENT THE PROCESS AND PROGRAM HE HAS BEEN REFERRED AND HE WAS APPRECIATIVE OF THE EFFORTS TO ASSIST HIM WITH HIS HOUSING AND MEDICAL SITUATION. PATIENT STATED MIKEY HE HAS NO MEDICATION WITH HIM AND THAT ALL HIS MEDICATIONS WAS LEFT AT THE [facility] HE WAS IN [place]. MD DEL RIO CAME IN DURING VISIT WITH PATIENT AND EXPLAINED TO PATIENT THAT A NEW MEDICATION ORDER WILL BE SEND TO PATIENT'S PHARMACY OF CHOICE. PATIENT REQUESTED TO BE SEND TO [facility] IN [place]. MD AGREED AND LEFT THE ROOM. PER PATIENT HE WAS REALLY APPRECIATIVE OF ALL RESOURCES PROVIDED BY [facility], STATED THAT HE WILL BE COMPLAINT WITH HIS TREATMENT AND MEDICAL CARE. SW ENDED THE VISIT AND WILL FOLLOW UP NEEDED. SW CALL AGAIN [facility] AT AT ABOUT 1500 TO FOLLOW UP WITH HOUSING SEARCH AND CONFIRMATION NEEDED FOR THE HOME HEALTH SERVICES. SPOKE TO ANALILIA AGAIN TO CONFIRMED THAT INFORMATION WAS CONFIRMED WITH HOME HEALTH HOWEVER; PER ANALILIA THE INFORMATION WAS RECEIVED BUT STILL PENDING AND SHE STATED THAT ONCE IS CONFIRMED AND HOUSING PLACEMENT FOR PATIENT IS FOUND AN [facility] STAFF WILL CONTACT YOSEPH/OBDULIA. YOSEPH ENDED THE CALL. YOSEPH/CM WILL FOLLOW UP NEEDED.
[2022-05-26] MEDS ORDERED: BLOO-224 INH (13:07)
[2022-05-26] MEDS ORDERED: INSU100I7 SQ (13:07)
[2022-05-26] MEDS ORDERED: HUMSLIDE SUBQ (13:07)
[2022-05-26] MEDS ORDERED: PANT40EC PO (13:09)
[2022-05-26 16:00] VITALS: BP 118/72
[2022-05-26] MEDS: INSULIN LISPRO SLIDING SCALE 100 UNITS/ML VIAL SUBQ PRN ×2 (16:57→20:36)
--- NOTE | 2022-05-26 19:30 | NUR ---
RECEIVED REPORT FROM DAY SHIFT NURSE FERNANDO FOR CONTINUITY OF CARE. PATIENT IS A&O X4. PATIENT IS ON ROOM AIR, BREATHING IS NORMAL WITH SYMMETRICAL RISE AND FALL OF CHEST. PATIENT HAS A DOUBLE LUMEN PICC LINE IN THE LAC; NO FLUIDS RUNNING AT THIS TIME (SALINE LOCKED). PATIENT ATE 100% OF HIS DINNER, AND IS SITTING UP IN BED IN SEMI-FOWLERS POSITION. I INTRODUCED MYSELF TO PATIENT AND ASKED IF HE NEEDED ANYTHING; PATIENT WAS PLEASANT AND STATED HE WAS FINE. BED IS IN LOWEST POSITION WITH WHEELS LOCKED AND CALL LIGHT IN PLACE. WILL CONTINUE TO OBSERVE PATIENT.
[2022-05-26 20:00] VITALS: BP 119/79
--- NOTE | 2022-05-26 20:40 | NUR ---
ADMINISTERED 2000 MEDICATION TO PATIENT. PATIENT TOLERATED MEDICATION WELL. OBTAINED PATIENT'S BS; BS WAS 180, COVERAGE IS NEEDED. ADMINISTERED 2 UNITS OF HUMALOG TO PATIENT IN LEFT ABDOMINAL AREA. PATIENT TOLERATED INJECTION WELL. PATIENT IS SITTING UP IN BED WATCHING TV. WILL CONTINUE TO OBSERVE PATIENT.
[2022-05-26] MEDS: ZOLPIDEM 5 MG TAB PO PRN (22:48)
--- NOTE | 2022-05-26 22:51 | NUR ---
PATIENT CALLED AND REQUESTED AMBIEN FOR SLEEP. CHECKED PATIENT'S VITALS; VITALS ARE WITHIN NORMAL LIMITS. CHECKED PATIENT'S CHART; AMBIEN WAS APPROPRIATE TO GIVE. ADMINISTERED MEDICATION, PATIENT TOLERATED WELL. PATIENT'S BREATHING WAS NORMAL WITH SYMMETRICAL RISE AND FALL OF CHEST. WILL CONTINUE TO OBSERVE PATIENT.
--- NOTE | 2022-05-27 02:00 | NUR ---
LOOKED IN ON PATIENT. PATIENT WOKE UP I ENTERED THE ROOM AND REQUESTED A SANDWICH. I OBTAINED A SANDWICH FROM [facility] FOR THE PATIENT. PATIENT THANKED ME AND SAID HE WOULD GO BACK TO SLEEP AFTER EATING. PATIENT'S BREATHING WAS NORMAL WITH SYMMETRICAL RISE AND FALL OF CHEST. WILL CONTINUE TO OBSERVE PATIENT.
[2022-05-27 04:00] VITALS: BP 109/69
[2022-05-27 06:07] LABS: CK-BB 0 % (0); CK-MB 0 % (0-3); CK-MM 100 % (97-100)
[2022-05-27] MEDS: BLOOD GLUCOSE MONITORING 1 DEV DEV FS SCH ×3 (06:35→17:00)
[2022-05-27] MEDS: INSULIN LISPRO SLIDING SCALE 100 UNITS/ML VIAL SUBQ PRN ×2 (06:36→17:16)
--- NOTE | 2022-05-27 06:46 | NUR ---
ENTERED PATIENT'S ROOM TO OBTAIN BS; BS WAS 255, 6 UNITS WERE GIVEN INTO LEFT ABDOMINAL REGION. PATIENT TOLERATED INJECTION WELL. PATIENT WAS SLEEPING LYING SUPINE WHEN ENTERED THE ROOM. AFTER RECEIVING INSULIN PATIENT ROLLED OVER TO GO BACK TO SLEEP. BREATHING WAS NORMAL WITH SYMMETRICAL RISE AND FALL OF CHEST.
--- NOTE | 2022-05-27 07:20 | NUR ---
RECEIVED REPORT FROM DRAFTER PLUMBING NURSE CIARAN FOR CONTINUITY OF CARE. PATIENT IS A&O X4. PATIENT IS ON ROOM AIR, BREATHING IS NORMAL WITH SYMMETRICAL RISE AND FALL OF CHEST. PATIENT HAS A DOUBLE LUMEN PICC LINE IN THE LAC; NO FLUIDS RUNNING AT THIS TIME (SALINE LOCKED). PT AMBULATES WITH A STEADY GAIT ON HIS OWN TO AND FROM THE BATHROOM AND AROUND HIS ROOM. BED IS IN LOWEST POSITION WITH WHEELS LOCKED AND CALL LIGHT IN PLACE. WILL CONTINUE TO OBSERVE PATIENT.
--- NOTE | 2022-05-27 07:45 | NUR ---
ENDORSED TO DAY SHIFT NURSE MASOUD FOR CONTINUITY OF CARE. PATIENT IS STABLE.
[2022-05-27 08:00] VITALS: BP 123/60
[2022-05-27] MEDS: SUCRALFATE 1 GM TAB PO SCH ×3 (09:20→17:16)
[2022-05-27] MEDS: DOCUSATE SODIUM 100 MG GELCAP PO SCH (09:20)
[2022-05-27] MEDS: PANTOPRAZOLE 40 MG TABEC PO SCH (09:20)
[2022-05-27] MEDS: INSULIN LANTUS 100 UNITS/ML 10 ML VIAL SUBQ SCH (09:23)
[2022-05-27 10:47] LABS: ANION GAP 9.6 (8-16); CARBON DIOXIDE 29.7 mmol/L (21-32); CREATININE 1.1 mg/dL (0.6-1.3); POTASSIUM 4.3 mmol/L (3.5-5.1)
[2022-05-27] MEDS ORDERED: BLOO-224 INH (13:08)
[2022-05-27] MEDS ORDERED: HUMSLIDE SUBQ (13:08)
[2022-05-27] MEDS ORDERED: INSU100I7 SQ (13:08)
[2022-05-27] MEDS ORDERED: PANT40EC PO (13:08)
--- NOTE | 2022-05-27 16:42 | NUR ---
PATIENT IS A&O X4. PATIENT IS ON ROOM AIR, BREATHING IS NORMAL WITH SYMMETRICAL RISE AND FALL OF CHEST. PT AMBULATES WITH A STEADY GAIT ON HIS OWN TO AND FROM THE BATHROOM AND AROUND HIS ROOM. PT IS INDEPENDENT IN FEEDING HIMSELF AND PERFORMING ADLS.
[2022-05-27 17:52] VITALS: BP 123/60
== END 2022-05-27 19:05 | disposition home health service (06) | DRG 420 ==
LOC: MED 12:15 → MIC 14:38 → MTU 05-24 17:54
PROVIDERS: ADMIT Hospitalist; ATTEND Hospitalist
PROC: 05HY33Z Insertion of Infusion Device into Upper Vein, Percutaneous Approach (ICD-10-PCS; principal; 2022-05-23)
DX: E10.10 Type 1 diabetes mellitus with ketoacidosis without coma (principal); N17.0 Acute kidney failure with tubular necrosis; R57.9 Shock, unspecified; E86.0 Dehydration; E83.51 Hypocalcemia; E87.0 Hyperosmolality and hypernatremia; E87.3 Alkalosis; K21.9 Gastro-esophageal reflux disease without esophagitis; J45.909 Unspecified asthma, uncomplicated; E87.6 Hypokalemia; I12.9 Hypertensive chronic kidney disease with stage 1 through stage 4 chronic kidney disease, or unspecified chronic kidney disease; E10.22 Type 1 diabetes mellitus with diabetic chronic kidney disease; N18.9 Chronic kidney disease, unspecified; Z20.822 Contact with and (suspected) exposure to COVID-19; Z88.0 Allergy status to penicillin; Z88.8 Allergy status to other drugs, medicaments and biological substances; Z59.00 Homelessness unspecified; Z91.14 Patient's other noncompliance with medication regimen; E83.42 Hypomagnesemia
CPT/HCPCS: 36415; 36600; 71045; 80048; 80053; 80305; 81003; 82009; 82552; 82803; 82948; 83605; 83690; 83735; 83880; 83930; 84100; 84436; 84484; 85025; 87040; 87081; 93005; C9113; J0696; J1170; J1815; J2270; J2405; J3480; J7030; J7060